=== PATIENT | female | born 1985 | race Caucasian/White ===

== ENCOUNTER → 2020-05-11 08:41 | Outpatient (CLI) | payer OTHER, SELFPAY ==
--- NOTE | ~2020-05-11 | US_ITS ---
EXAMINATION: US pelvic complete DATE: 05/11/2020 10:31 INDICATION: Menorrhagia Comparison:No prior studies for comparison. TECHNIQUE: Multiple transabdominal and endovaginal sonographic images of the pelvis performed. FINDINGS: The uterus measures 12.5 x 4.6 x 7.2 cm. There is a hyperechoic mass posteriorly in the afognak sindy measuring 2.2 x 1.9 x 1.9 cm, most likely calcified fibroid. The endometrial complex measures 10 mm. The right ovary measures 2.2 x 2.3 x 2.1 cm and the left ovary measures 2.5 x 2.2 x 2.2 cm. There ar e small follicles in each ovary. There is no free fluid in the pelvis. There are no abnormal masses seen on either side. IMPRESSION: 1. Hyperechoic 2.2 cm uterine mass posteriorly, likely calcified fibroid. Uterus mildly enlarged. Reviewed, dictated and finalized at location B. IMPRESSION: 1. Hyperechoic 2.2 cm uterine mass posteriorly, likely calcified fibroid. Uteru s mildly enlarged.
--- NOTE | ~2020-05-11 | MMUS_ITS ---
EXAMINATION: MM diagnostic randa BI w boris, US breast BI complete HISTORY: 11:00 right breast lump TECHNIQUE: Bilateral ML, MLO and craniocaudal full field and right spot 3-D tomosynthesis images were performed and synthetic 2-D images were generated. CAD analysis was submitted and interpreted. High resolution bilateral complete breast ultrasound was performed. COMPARISON: None BREAST PARENCHYMAL COMPOSITION: The breasts are heterogeneously dense, which may obscure small masses . FINDINGS: MAMMOGRAPHIC FINDINGS: Approximately 2.5 cm lobular circumscribed opacity is noted at the area of complaint in the upper out er quadrant of the right breast. Sonographic correlation is recommended. There is heterogeneously dense stroma of the breasts which may obscure small masses. Bilateral breast ultrasound examination therefore was performed. ULTRASOUND: Right breast: 11:00 2 cm from nipple at area of clinical complaint of breast lump: Lobular circumscribed up to 1.7 x 2.6 x 3.3 cm sonolucency with through transmission and posterior enhancement, compatible with cyst. Subareolar area: Approximately 4.5 x 7.8 mm hypoechoic mass with some posterior shadowing is noted. U ltrasound-guided biopsy is recommended. 10:00 4 cm from nipple: 4.8 x 10.3 mm sonolucency with through transmission posterior enhancement com patible with cyst Left breast: 12:00 1 cm from nipple: Circumscribed hypoechoic 4.6 x 5.0 mm sonolucency, without suspicious shadowi ng 4:00 6 cm from nipple: 2.6 mm cyst IMPRESSION: Right breast subareolar 4.5 x 7.8 mm hypoechoic mass with some posterior shadowing; ultrasound-guided biopsy is recommended Benign up to 3.2 cm lobular cyst of right breast at 11:00 2 cm from nipple, corresponding to palpable abnormality BI-RADS Category 4: Suspicious abnormality; biopsy should be considered (right breast subareolar 7.8 mm mass) Dr. Reeder telephoned the report and ultrasound guided biopsy recommendation on 05/11/2020 at 1320 hours to Izzy Reviewed, dictated and finalized at location A. IMPRESSION: Right breast subareolar 4.5 x 7.8 mm hypoechoic mass with some posterior shadow ing; ultrasound-guided biopsy is recommended Benign up to 3.2 cm lobular cyst of right breast at 11:00 2 cm from nipple, cor responding to palpable abnormality BI-RADS Category 4: Suspicious abnormality; biopsy should be considered (right breast subareolar 7.8 mm mass) Dr. Reeder telephoned the report and ultrasound guided biopsy recommendation on at 1320 hours to Izzy
== END ==
PROVIDERS: Visit Provider Nurse Practitioner
DX: N63.10 Unspecified lump in the right breast, unspecified quadrant (principal); N92.0 Excessive and frequent menstruation with regular cycle; R92.8 Other abnormal and inconclusive findings on diagnostic imaging of breast; N85.8 Other specified noninflammatory disorders of uterus
CPT/HCPCS: 76641; 76856; 77062; 77066; G0279

== ENCOUNTER 2020-05-24 10:05 | Outpatient (CLI) | payer OTHER, SELFPAY ==
--- NOTE | ~2020-05-24 | MMUS_ITS ---
EXAMINATION: US breast biopsy RT w image, MM post biopsy invasive RT DATE: 05/24/2020 11:10 (accession [id number]), 05/24/2020 11:21 (accession [id number]) INDICATION: Indeterminate a subareolar right breast mass. Ultrasound-guided core biopsy is requested to evaluate for malignancy. TECHNIQUE AND FINDINGS: The risks and potential benefits of the procedure were discussed with the patient including bleeding and infection. A time out was performed. The skin of the right breast was prepared and draped in usua l sterile fashion. 1% lidocaine was used for superficial anesthesia. 1% lidocaine with epinephrine wa s used for deep anesthesia. A vacuum-assisted biopsy gun needle was advanced through to the outer edge of the region of interest from a lateral approach utilizing sonographic guidance. A total of three tissue core samples were obt ained through the lesion. A tissue marker clip was then placed at the biopsy site. Hemostasis was ach ieved. A sterile bandage was applied. The patient tolerated procedure well and there was no evidence of immediate complication. A two view right breast mammogram was obtained to document tissue marker clip placement. IMPRESSION: 1. Successful ultrasound-guided vacuum-assisted biopsy of right breast mass with tissue marker placem ent. Reviewed, dictated and finalized at location A. IMPRESSION: 1. Successful ultrasound-guided vacuum-assisted biopsy of right breast mass wit h tissue marker placement.
== END 2020-05-24 10:06 | disposition home or self-care (01) ==
PROVIDERS: PCP Family Medicine; Visit Provider Surgery
DX: R92.8 Other abnormal and inconclusive findings on diagnostic imaging of breast (principal)
CPT/HCPCS: 19083; 88305; A4648

== ENCOUNTER 2020-07-11 17:12 | Emergency (ER) | payer OTHER, SELFPAY ==
[2020-07-11 17:26] VITALS: BP 174/95; PULSE 101; RESP 17; TEMP 37; O2SAT 100
[2020-07-11 17:45] LABS: Basophils Absolute Auto 0.1 K/mm3 (0.0-0.1); Basophils Percent Auto 0.6 % (0.2-1.2); Eosinophils Absolute Auto 0.3 K/mm3 (0-0.3); Eosinophils Percent Auto 2.4 % (0-4.4); Hematocrit 40.3 % (37.0-47.0); Hemoglobin 13.4 g/dL (12.0-15.0); Immature Granulocyte Absolute 0.04 K/mm3 (0.00-0.031); Immature Granulocyte Percent A 0.4 % (0-0.5); Lymphocytes Absolute Auto 2.48 K/mm3 (0.9-3.2); Lymphocytes Percent Auto 24.1 % (18.3-44.2); Mean Corpuscular HGB Conc 33.3 g/dl (32-36); Mean Corpuscular Hemoglobin 29.2 pg (26-34); Mean Corpuscular Volume 87.8 fl (80-100); Monocytes Absolute Auto 0.7 K/mm3 (0.1-0.6); Monocytes Percent Auto 6.4 % (2.6-8.5); Neutrophils Absolute Auto 6.8 K/mm3 (1.3-6.7); Neutrophils Percent Auto 66.1 % (45.5-73.1); Platelet Count Result 242 k/mm3 (150-375); Red Blood Count 4.59 M/mm3 (4.2-5.4); Red Cell Distribution Width 14.5 % (11.5-14.5); White Blood Count 10.3 K/mm3 (4.5-10.0)
[2020-07-11 17:49] LABS: Add Urine Microscopic? YES; Appearance Urine Cloudy (Clear); Bacteria Urine Trace /hpf; Bilirubin Urine Negative (Negative); Blood Urine 3+ (Negative); Color Urine Yellow (Yellow); Glucose Urine UA Negative (Negative); Ketones Urine Negative (Negative); Leukocyte Esterase Ur 2+ LEU/UL (Negative); Mucus Urine Few /lpf; Nitrate Urine Negative (Negative); Protein Urine 1+ mg/dL (Negative); RBC Urine >75 /hpf (0-2); Squamous Epithelial Cell Urine Many /hpf (Few); Urobilinogen Urine Negative mg/dL (<2.0); WBC Urine 21-30 /hpf
[2020-07-11 18:02] LABS: Alanine Aminotransferase 18 U/L (4-35); Albumin Level 3.9 g/dL (3.5-5.1); Alkaline Phosphatase 76 U/L (38-126); Anion Gap 10 mmol/L (8-16); Aspartate Amino Transferase 19 U/L (14-36); Bilirubin,Total 0.4 mg/dL (0.2-1.3); Blood Urea Nitrogen 11 mg/dL (7-17); Calcium 9.2 mg/dL (8.4-10.2); Carbon Dioxide 24 mmol/L (22-30); Chloride 104 mmol/L (98-107); Estimated CRCL calculation 123 ml/min; Estimated Glomerular Filt Rate > 60; Glucose 102 mg/dL (65-105); Lipase 99 U/L (23-300); Potassium 3.5 mmol/L (3.4-5.0); Sodium 138 mmol/L (137-145)
--- NOTE | 2020-07-11 18:59 | PC.NURSE ---
Pt asked this RN would it be bad if i just left ? I informed pt that i cant tell her that. Pt states that I have sat here long enough the pain is gone. then left.
== END 2020-07-11 18:59 | disposition left against medical advice (07) ==
PROVIDERS: Emergency Provider Emergency Medicine; PCP Family Medicine
DX: R10.31 Right lower quadrant pain (principal)
CPT/HCPCS: 36415; 80053; 81001; 83690; 85025; 87086; 87088; 99199

== ENCOUNTER → 2020-10-28 08:43 | Outpatient (CLI) | payer OTHER, SELFPAY ==
--- NOTE | ~2020-10-28 | MM_ITS ---
EXAMINATION: MM diagnostic randa RT w boris HISTORY: Follow-up benign right breast biopsy. TECHNIQUE: Additional 3-D tomosynthesis images of the right breast were performed and synthetic 2-D i mages were generated. CAD analysis was submitted and interpreted. COMPARISON: Comparison to multiple prior studies sequentially, with oldest reviewed study dated 09/2014. BREAST PARENCHYMAL COMPOSITION: The breasts are heterogenously dense, which may obscure small masses. FINDINGS: There is decreased size of mass in the upper outer quadrant of the right breast, previously characterized as a cyst. No new masses, calcifications or architectural distortion are identified in the right breast to suggest malignancy. IMPRESSION: 1. No evidence for malignancy in the right breast. 2. Routine yearly screening mammogram and regular clinical breast examination are recommended. BI-RADS Category 2: Benign finding(s). Reviewed, dictated and finalized at location A. TICS SOFTWARE ENGINEER IMPRESSION: 1. No evidence for malignancy in the right breast. 2. Routine yearly screening mammogram and regular clinical breast examination a re recommended. BI-RADS Category 2: Benign finding(s).
== END ==
PROVIDERS: Visit Provider Surgery
DX: R92.8 Other abnormal and inconclusive findings on diagnostic imaging of breast (principal)
CPT/HCPCS: 77061; 77065; G0279

== ENCOUNTER → 2021-04-20 10:29 | Outpatient (CLI) | payer OTHER, SELFPAY ==
--- NOTE | ~2021-04-20 | MM_ITS ---
EXAMINATION: MM screening randa BI w boris HISTORY: Screening mammogram, family history of breast cancer in her mother. TECHNIQUE: Craniocaudal and mediolateral oblique 3-D tomosynthesis images were obtained and synthetic 2-D images were generated. CAD analysis was submitted and interpreted. COMPARISON: 10/28/2020, 05/11/2020 BREAST PARENCHYMAL COMPOSITION: The breasts are heterogeneously dense, which may obscure small masses . FINDINGS: There is no evidence of suspicious mass, calcification, or architectural distortion to sugg est malignancy in either breast. There has been no suspicious interval change. IMPRESSION: 1. No mammographic evidence of malignancy. 2. Recommend routine screening mammography beginning at age 40. BI-RADS Category 1: Negative Reviewed, dictated and finalized at location A.
== END ==
PROVIDERS: PCP Family Medicine; Visit Provider Surgery
DX: Z12.31 Encounter for screening mammogram for malignant neoplasm of breast (principal)
CPT/HCPCS: 77063; 77067

== ENCOUNTER 2021-07-01 08:06 | Outpatient (CLI) | payer OTHER, SELFPAY ==
--- NOTE | ~2021-07-01 | XR_ITS ---
EXAMINATION: XR abdomen/kub 1V INDICATION: Nephrolithiasis TECHNIQUE: Supine views of the abdomen were obtained on 2 radiographs. COMPARISON: 02/23/2017 FINDINGS: There is bilateral nephrolithiasis. There appear to be fewer stones in the right mid kidney compared to the prior examination. Cholecystectomy clips are noted. The bowel gas pattern is normal. There are bilateral tubal occlusion devices. IMPRESSION: 1. Bilateral nephrolithiasis with possible interval decrease in stone burden the right mid kidney. Reviewed, dictated and finalized at location B. IMPRESSION: 1. Bilateral nephrolithiasis with possible interval decrease in stone burden th e right mid kidney.
--- NOTE | ~2021-07-01 | CT_ITS ---
EXAMINATION: CT abdomen pelvis wo con DATE: 07/01/2021 08:30 INDICATION: Kidney stones. TECHNIQUE: Computed tomography (CT) of the abdomen and pelvis was performed without intravenous contr ast. The dose-length product (DLP) was 967.71 mGy-cm. Automated exposure control and iterative recons truction technique were employed. COMPARISON: 01/23/2017 FINDINGS: Minimal dependent atelectasis is present in the lung bases. The heart size is normal. The g allbladder is surgically absent. Punctate calcifications in an otherwise normal spleen likely represe nt healed granulomatous disease. The liver, pancreas, and right adrenal gland are normal. There is a 16 mm adenoma of the left adrenal gland. There are multiple nonobstructing stones of the left kidney which measure up to 7 mm. There are multiple nonobstructing stones of the right kidney as well which measure up to 7 mm. No pathologically enlarged abdominal or pelvic lymph nodes are identified. There is no free intraperitoneal gas or evidence of bowel obstruction. A 1.9 cm hypoattenuating lesion of t he uterus is stable since the 1519 ultrasound comparison. Bilateral tubal occlusion devices are noted. There is moderate lumbar spondylosis. IMPRESSION: 1. Nonobstructing bilateral nephrolithiasis. Reviewed, dictated and finalized at location B.
== END 2021-07-01 08:07 | disposition home or self-care (01) ==
PROVIDERS: PCP Family Medicine; Visit Provider Urology
DX: N20.0 Calculus of kidney (principal)
CPT/HCPCS: 74018; 74176

== ENCOUNTER → 2022-05-29 11:38 | Outpatient (CLI) | payer OTHER, SELFPAY ==
--- NOTE | ~2022-05-29 | XR_ITS ---
EXAMINATION: XR chest 2V 05/29/2022 11:51 INDICATION: Shortness of breath PROCEDURE: 2 view chest COMPARISON: No prior studies for comparison. FINDINGS: The lungs are clear. The cardiomediastinal silhouette is within normal limits. There are no pleural effusions. There is no pneumothorax suspected. IMPRESSION: 1: NO ACUTE CARDIOPULMONARY DISEASE. Reviewed, dictated and finalized at location A.
== END ==
PROVIDERS: PCP Physician Assistant; Visit Provider Physician Assistant
DX: R06.02 Shortness of breath (principal)
CPT/HCPCS: 71046

== ENCOUNTER → 2022-07-06 15:00 | Outpatient (CLI) | payer OTHER, SELFPAY ==
--- NOTE | ~2022-07-06 | US_ITS ---
EXAMINATION: US pelvic complete DATE: 07/06/2022 15:16 INDICATION: Menorrhagia. TECHNIQUE: Multiple transabdominal sonographic images of the pelvis were obtained. COMPARISON: CT abdomen and pelvis 07/01/2021 FINDINGS: The uterus measures 12.0 x 5.3 x 8.0 cm. There is no free fluid in the pelvis. The endometrial comple x measures 6 mm in thickness. There is a 3.3 cm hyperechoic intramural mass, consistent with a lipole iomyoma. The right ovary is not visualized. The left ovary measures 1.6 x 2.5 x 1.8 cm. IMPRESSION: 1. 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 Reviewed, dictated and finalized at location A. AUDITOR IMPRESSION: 1. 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
== END ==
PROVIDERS: PCP Obstetrics & Gynecology Gynecology; Visit Provider Obstetrics & Gynecology Gynecology
DX: N92.0 Excessive and frequent menstruation with regular cycle (principal)
CPT/HCPCS: 76856

== ENCOUNTER 2022-07-12 12:17 | Outpatient (CLI) | payer OTHER, SELFPAY ==
--- NOTE | ~2022-07-12 | MM_ITS ---
EXAMINATION: MM screening [facility] BI w boris HISTORY: Screening TECHNIQUE: Craniocaudal and mediolateral oblique 3-D tomosynthesis images were obtained and synthetic 2-D images were generated. CAD analysis was submitted and interpreted. COMPARISON: Comparison to multiple prior studies sequentially, with oldest reviewed study dated 05/11. BREAST PARENCHYMAL COMPOSITION: The breasts are extremely dense, which lowers the sensitivity of mamm ography FINDINGS: There are developing bilateral low-density masses involving the upper outer quadrant of the right breast anteriorly in the lower inner quadrant of the left breast anteriorly. IMPRESSION: 1. Developing bilateral breast masses. 2. Additional mammographic views and possible breast ultrasound are recommended. BI-RADS Category 0: Incomplete: Needs additional imaging evaluation. Reviewed, dictated and finalized at location A. CAL ASSISTANT PRN IMPRESSION: 1. Developing bilateral breast masses. 2. Additional mammographic views and possible breast ultrasound are recommended . BI-RADS Category 0: Incomplete: Needs additional imaging evaluation.
== END 2022-07-12 12:18 | disposition home or self-care (01) ==
PROVIDERS: PCP Physician Assistant; Visit Provider Surgery
DX: Z12.31 Encounter for screening mammogram for malignant neoplasm of breast (principal); R92.8 Other abnormal and inconclusive findings on diagnostic imaging of breast
CPT/HCPCS: 77063; 77067

== ENCOUNTER 2022-08-01 13:14 | Outpatient (CLI) | payer OTHER, SELFPAY ==
--- NOTE | ~2022-08-01 | MMUS_ITS ---
EXAMINATION: MM diagnostic randa BI w boris, US breast BI limited HISTORY: Possible bilateral breast masses on screening mammogram TECHNIQUE: Additional 3-D tomosynthesis images of the breasts were performed and synthetic 2-D images were generated. CAD analysis was submitted and interpreted. High resolution limited bilateral breast ultrasound was performed. COMPARISON: 07/12/2022, 04/20/2021, 10/28/2020, 05/09/2020 FINDINGS: MAMMOGRAPHIC FINDINGS: Left breast: There is a 1.5 cm oval, obscured, low density mass in the middle third of the lower inne r breast at the 8:00 location 5 cm from the nipple. Right breast: There is a 2.2 cm oval, obscured, low density mass in the middle third of the outer armaan ast at the 10:00 location 5 cm from the nipple. ULTRASOUND: Left breast: There is a 10 mm x 6 mm oval, circumscribed, parallel, hypoechoic mass with no posterior features or internal vascularity at the 6:00 location 1 cm from the nipple. There is an adjacent 12 mm cyst. Right breast: There is a 13 mm x 9 mm oval, circumscribed, parallel mass with an eccentric solid comp onent at the 10:00 location 2 cm from the nipple with no posterior features or internal vascularity. There is a 2.8 cm cyst with debris o'clock location 3 cm from the nipple with decrease in size since the comparison examination. There is a 9 mm x 5 mm oval, circumscribed, parallel, hypoechoic mass wit h no posterior features or internal vascularity at the 11:00 location 2 cm from the nipple. IMPRESSION: 1. Indeterminate sonographically detected masses at the 6:00 location 1 cm from the nipple in the lef t breast and the 10:00 location 2 cm from the nipple in the right breast for which ultrasound-guided biopsy is recommended. 2. Probably benign mass at the 11:00 location 2 cm from the nipple in the right breast for which foll ow-up diagnostic mammogram and ultrasound are recommended. BI-RADS category 4, suspicious findings. Reviewed, dictated and finalized at location A. TIC ATTACHER COVERSTITCH IMPRESSION: 1. Indeterminate sonographically detected masses at the 6:00 location 1 cm from the nipple in the left breast and the 10:00 location 2 cm from the nipple in t he right breast for which ultrasound-guided biopsy is recommended. 2. Probably benign mass at the 11:00 location 2 cm from the nipple in the right breast for which follow-up diagnostic mammogram and ultrasound are recommended . BI-RADS category 4, suspicious findings.
== END 2022-08-01 13:15 | disposition home or self-care (01) ==
LOC: ANHIMG 13:18
PROVIDERS: PCP Physician Assistant; Visit Provider Surgery
DX: R92.8 Other abnormal and inconclusive findings on diagnostic imaging of breast (principal)
CPT/HCPCS: 76642; 77062; 77066; G0279

== ENCOUNTER 2022-08-15 09:06 | Outpatient (CLI) | payer OTHER, SELFPAY ==
--- NOTE | ~2022-08-15 | MMUS_ITS ---
MM post biopsy diagnostic BI, US breast bx add lesion LT, US breast biopsy RT w image EXAMINATION: US GUIDED NEEDLE BIOPSY WITH VACUUM ASSISTANCE DATE: 08/15/2022 11:16 POSTAL SERVICE WINDOW CLERK INDICATION: Bilateral breast masses seen on recent examination. Ultrasound-guided core biopsy is req uested to evaluate for malignancy. TECHNIQUE AND FINDINGS: The risks and potential benefits of the procedure were discussed with the patient, and written inform ed consent was obtained. After sterile preparation of the breast, 1% lidocaine was utilized for loca l anesthesia. 1% lidocaine with epinephrine was used for deep anesthesia. Right breast 10:00 position 2 cm from the nipple: A 10G vacuum-assisted biopsy gun needle was advance d through to the outer edge of the region of interest from a superior approach utilizing sonographic guidance. A total of 4 tissue core samples were obtained through the lesion. An Inrad tissue marker clip was then placed at the biopsy site. Hemostasis was achieved. Left breast 6:00, 1 cm from the nipple: A 10G vacuum-assisted biopsy gun needle was advanced through to the outer edge of the region of interest from a lateral approach utilizing sonographic guidance. A total of 4 tissue core samples were obtained through the lesion. An Inrad tissue marker clip was t hen placed at the biopsy site. Hemostasis was achieved. The patient tolerated procedure well and there was no evidence of immediate complication. The patien t was given verbal instructions partly is from the department. Bilateral mammogram performed to docu ment tissue marker clip placement. The tissue samples were submitted to surgical pathology for histol ogic analysis. IMPRESSION: 1. Successful ultrasound-guided vacuum-assisted biopsy of bilateral breast mass with tissue marker p lacement. Please refer to pathology report for histologic analysis. Reviewed, dictated and finalized at location A. AL SERVICE WINDOW CLERK IMPRESSION: 1. Successful ultrasound-guided vacuum-assisted biopsy of bilateral breast mas s with tissue marker placement. Please refer to pathology report for histologic analysis. IMPRESSION: 1. Successful ultrasound-guided vacuum-assisted biopsy of bilateral breast mas s with tissue marker placement. Please refer to pathology report for histologic analysis.
== END 2022-08-15 09:07 | disposition home or self-care (01) ==
PROVIDERS: PCP Family Medicine; Visit Provider Surgery
DX: R92.8 Other abnormal and inconclusive findings on diagnostic imaging of breast (principal); N60.12 Diffuse cystic mastopathy of left breast; N60.11 Diffuse cystic mastopathy of right breast
CPT/HCPCS: 19083; 19084; 77066; 88305; A4648

== ENCOUNTER 2023-01-29 11:41 | Outpatient (CLI) | payer OTHER, SELFPAY ==
--- NOTE | ~2023-01-29 | MMUS_ITS ---
EXAMINATION: MM diagnostic randa RT w boris, US breast RT limited HISTORY: Follow-up right breast masses TECHNIQUE: Additional 3-D tomosynthesis images of the right breast were performed and synthetic 2-D i mages were generated. CAD analysis was submitted and interpreted. High resolution Limited right breas t ultrasound was performed. COMPARISON: Comparison to multiple prior studies sequentially, with oldest reviewed study dated 05/24. BREAST PARENCHYMAL COMPOSITION: The breasts are heterogeneously dense, which may obscure small masses . FINDINGS: MAMMOGRAPHIC FINDINGS: There is an obscured 2 cm mass in the upper outer quadrant of the right breast. There are adjacent ti ssue markers from previous benign biopsies. There are no suspicious calcifications or architectural d istortion. ULTRASOUND: Limited right breast ultrasound: At 11:00, 2 cm from the nipple there is a 9 mm cyst. At 10:00, 2 cm from the nipple, there is a thick-walled cyst measuring 1.8 cm. This masses slightly larger than on p rior examination with thickening of the wall along the anterior lateral margin. At 9:00, 3 cm from th e nipple, there is a thick-walled 1.8 cm cystic mass. Both masses at 10 and 9:00 position, parallel o rientation, no significant posterior features and no internal vascularity. This mass has a different morphology than on prior study with fewer internal echoes and more peripheral wall thickening. IMPRESSION: 1. Complex cystic masses of the right breast at 10:00, 2 cm from the nipple measuring 1.8 cm and at 9 :00, 3 cm from the nipple measuring 1.8 cm. Ultrasound guided fine needle aspiration of these masses recommended with possible ultrasound-guided vacuum biopsy. BI-RADS CATEGORY 4-SUSPICIOUS ABNORMALITY RECOMMENDATION: Ultrasound-guided right breast biopsies recommended. Reviewed, dictated and finalized at location A. IMPRESSION: 1. Complex cystic masses of the right breast at 10:00, 2 cm from the nipple lucius suring 1.8 cm and at 9:00, 3 cm from the nipple measuring 1.8 cm. Ultrasound gu ided fine needle aspiration of these masses recommended with possible ultrasoun d-guided vacuum biopsy. BI-RADS CATEGORY 4-SUSPICIOUS ABNORMALITY RECOMMENDATION: Ultrasound-guided right breast biopsies recommended.
== END 2023-01-29 11:42 | disposition home or self-care (01) ==
LOC: ANHIMG 11:42
PROVIDERS: PCP Family Medicine; Visit Provider Surgery
DX: R92.8 Other abnormal and inconclusive findings on diagnostic imaging of breast (principal)
CPT/HCPCS: 76642; 77061; 77065; G0279

== ENCOUNTER 2023-03-20 08:47 | Outpatient (CLI) | payer OTHER, SELFPAY ==
--- NOTE | ~2023-03-20 | MMUS_ITS ---
EXAMINATION: US breast biopsy RT w image, MM post biopsy diagnostic RT DATE: 03/20/2023 10:00 (accession [id number]), 03/20/2023 10:07 (accession [id number]) INDICATION: Indeterminate mass in the upper outer quadrant of the right breast. Ultrasound-guided cor e biopsy is requested to evaluate for malignancy. TECHNIQUE AND FINDINGS: The risks and potential benefits of the procedure were discussed with the patient including bleeding and infection. A time out was performed. The skin of the right breast was prepared and draped in usua l sterile fashion. 1% lidocaine was used for superficial anesthesia. 1% lidocaine with epinephrine wa s used for deep anesthesia. A vacuum-assisted biopsy needle was advanced through to the outer edge of the region of interest from an inferolateral approach utilizing sonographic guidance. A total of three tissue core samples were obtained through the lesion. A tissue marker clip was then placed at the biopsy site. Hemostasis was achieved. A sterile bandage was applied. The patient tolerated procedure well and there was no evidence of immediate complication. The patient was given verbal instructions to return to the Emergency Department in the event of severe breast pa in or rapid breast enlargement. A two view right breast mammogram was obtained to document tissue mar ker clip placement. IMPRESSION: 1. Successful ultrasound-guided vacuum-assisted biopsy of right breast mass with tissue marker placem ent. Reviewed, dictated and finalized at location D. IMPRESSION: 1. Successful ultrasound-guided vacuum-assisted biopsy of right breast mass wit h tissue marker placement.
== END 2023-03-20 08:48 | disposition home or self-care (01) ==
LOC: CHSIMG 08:49
PROVIDERS: PCP Family Medicine; Visit Provider Surgery
DX: R92.8 Other abnormal and inconclusive findings on diagnostic imaging of breast (principal); N63.10 Unspecified lump in the right breast, unspecified quadrant
CPT/HCPCS: 19083; 77065; 88305

== ENCOUNTER 2023-09-12 08:38 | Outpatient (CLI) | payer OTHER, SELFPAY ==
--- NOTE | 2023-09-13 17:23 | WPDHOMESLEEP ---
Sleep Study - Home Unattended Date of Study: 09/12/23 Ordering Provider: Garrett Swartz PA-C Interpreting Provider: Aracelis Grier MD Home Sleep Study Type: Watch PAT Height: 1.73 m Weight: 139.253 kg Body Mass Index: 46.6 Neck Circumference (inches): 17.5 [place]: 8 Reason for Sleep Study Hypersomnolence Sleep History Jazmyne Donaldson is a 38-year-old woman with hypertension and excessive daytime sleepiness. She has episodes of waking during the night. She never awakens from sleep short of breath. She rarely wakes at night with heartburn, belching or coughing.??She occasionally snores, and occasionally snores loudly enough that others complain. She frequently has trouble sleeping when she has a cold. She never wakes up gasping for breath during the night. She never has breathing problems at night. She never sweats excessively at night. She rarely notices her heart pounding or beating irregularly during the night. She occasionally falls asleep during the day. She never falls asleep involuntarily, never falls asleep while driving. She never experiences loss of muscle tone with strong emotion. She never feels paralyzed on waking or falling asleep. She never experiences vivid dreams upon waking or falling asleep. She never feels afraid of going to sleep. She never has nightmares. She never recalls her dreams. She occasionally has thoughts racing through her mind. She rarely feels sad or depressed. She rarely feels anxiety. She rarely notices parts of her body jerk. She never kicks during the night. She never feels crawling or aching feelings in her legs. She never feels leg pain at night. She never has morning jaw pain, and never grinds her teeth at night. She rarely feels bothered by pain during the day, is rarely awakened by pain during the night. She rarely wakes up feeling stiff in the morning, rarely wakes feeling sore or achy in the morning. She rarely awakens with pain in her neck, spine, or joints. 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 and 11:00 p.m., falling asleep within a few minutes, usually within 5 minute, waking about 5 times during the night for a few minutes. While awake, she rolls over and returns to sleep easily. Her normal wake time is 6:00 a.m. during the week. On weekends, bedtime is 11:00 p.m. and her wake time is a little later, between 8:00 a.m. and 10:00 p.m.. She generally does not take naps in the afternoon or evening. If she takes a short nap lasting 10 or 15 minutes, she may feel refreshed. Most of the time she feels adequate on awakening but become sleepy later in the day. She feels better in the evening compared to other times of day. Habits:??Tobacco: Never smoker Caffeine: 1 or 2 servings of caffeine per week Alcohol: none Recreational substances: none [facility] Past Medical History Medical History Abnormal finding on breast imaging History of kidney stones Hypertension Surgical History Surgical History History of breast biopsy right breast Pathology: Benign fibrocystic change with focal apocrine metaplasia. Imaging findings are concordant. History of cholecystectomy History of removal of cyst wrist History of tonsillectomy Family History Family History Mother Family history of malignant neoplasm of breast in first degree relative Breast cancer Grandparent Family history of coronary artery disease Father Lung cancer Testicular cancer Other Diabetes mellitus Social History Social History Smoking status: Never smoker Alcohol intake: never Substance use: never Substance use type: does not use Do You Feel Safe in your Home?
[2023-09-13 17:27] VITALS: BMI 46.6
== END 2023-09-13 08:57 | disposition home or self-care (01) ==
LOC: ANHCSM 08:39
PROVIDERS: PCP Family Medicine; Visit Provider Physician Assistant
DX: G47.33 Obstructive sleep apnea (adult) (pediatric) (principal)
CPT/HCPCS: 95800

== ENCOUNTER 2023-11-17 10:52 | Outpatient (CLI) | payer OTHER, SELFPAY ==
--- NOTE | ~2023-11-17 | US_ITS ---
EXAMINATION: US pelvic complete DATE: 11/17/2023 11:08 INDICATION: Abnormal uterine bleeding Comparison:Ultrasound dated 07/06/2022 TECHNIQUE: Multiple transabdominal sonographic images of the pelvis performed. FINDINGS: The uterus measures 11.4 x 5.5 x 7.7 cm. The endometrial complex measures 8 mm. There is a hyperechoic uterine mass along the posterior aspect of the uterus measuring 3.5 x 3.3 x 3. 5 cm, consistent with lipoleiomyoma. There is a small uterine fibroid located anteriorly measuring 1. 8 cm, slightly hyperechoic. The right ovary measures and the left ovary measures . There are small follicles in each ovary. Norm al doppler signal in both ovaries. There is no free fluid in the pelvis. There are no abnormal masses seen on either side. IMPRESSION: 1. Uterine masses, largest being echogenic measuring up to 3.5 cm, consistent with lipoleiomyoma. Sec ond uterine fibroid located anteriorly measures 1.8 cm. Reviewed, dictated and finalized at location A. IMPRESSION: 1. Uterine masses, largest being echogenic measuring up to 3.5 cm, consistent w ith lipoleiomyoma. Second uterine fibroid located anteriorly measures 1.8 cm.
== END 2023-11-17 10:53 ==
LOC: MICIMG 10:52
PROVIDERS: PCP Obstetrics & Gynecology Gynecology; Visit Provider Obstetrics & Gynecology Gynecology
DX: N93.8 Other specified abnormal uterine and vaginal bleeding (principal)
CPT/HCPCS: 76856

== ENCOUNTER 2024-02-20 09:55 | Outpatient (CLI) | payer OTHER, SELFPAY ==
--- NOTE | 2024-02-20 10:03 | ECG_ITS ---
Test Date: 2024-02-20 10:15:26 Measurements Intervals [place] Rate: 38 P: 12 WV: 173 QRS: 20 QRSD: 97 T: 1 QT: 343 QTc: 274 Interpretive Statements SINUS BRADYCARDIA LOW QRS VOLTAGE IN PRECORDIAL LEADS [QRS DEFLECTION < 1.0 mV IN CHEST LEADS] POOR R-WAVE PROGRESSION WARNING: DATA QUALITY MAY AFFECT INTERPRETATION No previous ECG available for comparison Electronically Signed On 02-20-2024 11:55:45 CDT by Dian Church M.D.
== END 2024-02-20 09:56 | disposition home or self-care (01) ==
LOC: ANHSURGERY 09:57
PROVIDERS: PCP Family Medicine; Visit Provider Obstetrics & Gynecology Gynecology
DX: N92.0 Excessive and frequent menstruation with regular cycle (principal); I10 Essential (primary) hypertension
CPT/HCPCS: 36415; 86850; 86900; 86901; 93005

== ENCOUNTER 2024-02-25 10:59 | Inpatient (IN) | payer OTHER, SELFPAY ==
[2024-02-14 13:33] VITALS: BMI 47.9
--- NOTE | 2024-02-14 14:00 | PC.NURSE ---
Report to the Outpatient Waiting Room, entrance under the green pavilion located off [facility], at 0600 on 02-25-24. Planned Procedure Time: 0730. Time changes happen often and if your time is changed the preop area will call you the afternoon before. - You and your visitor will be asked to self-screen and do not enter if you have any COVID symptoms. - A mask is optional within the hospital at this time. Patients may have clear liquids (water, carbonated beverages, clear teas, apple juice) until 3 hours prior to surgery with a maximum of 20 ounces. 0430 - No food from midnight until time of surgery - Infants may have breast milk until 4 hours before surgery, formula 6 hours prior to surgery. - Children will be allowed to drink immediately following surgery. If applicable, please bring a bottle or sippy cup to assist with drinking. Juice, water, soda, and popsicles are readily available. For infants on formula, please bring formula the day of surgery. Pacifiers are allowed. Take the following medications with a SIP of water the morning of surgery: metoprolol Bring inhaler day of surgery to the hospital with you DO NOT STOP ANY OF YOUR OTHER PRESCRIPTION MEDICATIONS PRIOR TO SURGERY ?EXCEPT THE FOLLOWING Medications to discontinue per physician: vitamins and supplements Date to take last dose: 02-22-24 Please no make-up, nail gambian, hairspray, perfume, deodorant, or body powder the day of surgery. No jewelry (including any body piercings) or valuables the day of surgery, leave them at home. Please take a shower or bath the night before, or the morning of, surgery with an antibacterial soap. Wear comfortable, loose fitting clothing. Children are encouraged to wear pajamas. - Jewelry must be removed prior to entering the operating room. Rings and piercings that are not removed may be cut off. - The hospital will not accept responsibility for valuables. - Please leave all valuables, including medications, at home the day of surgery. If you are going home after surgery, a licensed tower truck driver must drive you home. - NO public transportation without another adult if you receive anesthesia. - We recommend that an adult stay with you for 24 hours following discharge. - We also recommend that you do not drive, make important decision, drink alcoholic beverages, or take any drugs that were not prescribed by your health care provider for at least 24 hours after your discharge time. For Pediatric surgeries, we recommend two adults accompany the child home. Follow any additional instructions given to you from your surgeon. If you or anyone in your household have experienced Covid symptoms in the past week, please notify your surgeon or the nurse liaison at the phone number below for possible testing. Telephone instructions given to Jazmyne Donaldson and asked if any additional questions and then verbalized understanding. Patient advised to call surgeon office or pre surgery nurse liaison [phone] if any additional questions.
[2024-02-25] VITALS (20 sets, daily range): BP systolic 127–180; BP diastolic 79–119; PULSE 69–99; RESP 12–22; TEMP 36.2–36.9; O2SAT 91–100
[2024-02-25] MEDS: ACETAMINOPHEN 500 MG TABLET 1000 MG PO (06:38)
[2024-02-25] MEDS: LACTATED RINGERS 1,000 ML 30 ML IV CONT ×2 (06:45→09:39)
[2024-02-25] MEDS: KETOROLAC 15 MG/ML VIAL (*BKC) IV PUSH (06:48)
--- NOTE | 2024-02-25 06:50 | WPDANESEPPF ---
Anes - Initial Pre Proc Eval Procedure: Operation Date: 02/25/24 07:30 Proposed Procedures p Total Abdominal Hysterectomy with Bilateral Salpingectomy - Micki Silva MD Date/Time: 02/25/24 06:50 Surgeon: Micki Silva MD Pre Op Diagnosis: menorrhagia, fibroids Patient Data Age: 39 Gender: F Height: 1.73 m Weight: 142.88 kg Allergies Allergy/AdvReac Type Severity Reaction Status Date / Time lisinopril Allergy Severe Cough Verified 02/25/24 06:12 Sulfa (Sulfonamide Allergy Unknown unknown Verified 02/25/24 06:12 Antibiotics) sulfanilamide Allergy Unknown unknown Verified 02/25/24 06:12 amlodipine AdvReac Severe ankle Verified 02/25/24 06:12 swelling Home Medications Medication Instructions Recorded Confirmed Type albuterol sulfate 90 mcg/actuation 2 inh inhalation Q4H wheezing/ 05/29/22 02/20/24 Rx aerosol inhaler (ProAir HFA) shortness of breath #8.5 grams metformin 500 mg tablet,extended See Rx Instructions PO .COMPLEX 01/10/24 02/25/24 Rx release 24 hr #180 tabs omega 3-mes-tba-fish oil 1,200 mg 2 cap PO DAILY 02/14/24 02/25/24 History (144 mg-216 mg) capsule (Fish Oil) metoprolol succinate 50 mg 50 mg PO DAILY #90 tabs 02/21/24 02/25/24 Rx tablet,extended release 24 hr Patient hx anesthesia problems: none Family hx anesthesia problems: none Results Review: All pre-operative results and documents have been reviewed as part of the pre-operative evaluation. [facility] Past Medical History Medical History Abnormal finding on breast imaging Foot pain, left History of kidney stones Hypertension Surgical History Surgical History History of breast biopsy right breast Pathology: Benign fibrocystic change with focal apocrine metaplasia. Imaging findings are concordant. History of cholecystectomy History of removal of cyst wrist History of tonsillectomy Family History Family History Mother Family history of malignant neoplasm of breast in first degree relative Breast cancer Grandparent Family history of coronary artery disease Father Lung cancer Testicular cancer Other Breast cancer BRCA negative Other Diabetes mellitus Social History Social History Smoking status: Never smoker Second hand tobacco smoke exposure: No Alcohol intake: never Alcohol use details: very rarely maybe one time per year Substance use: never Substance use type: does not use Do You Feel Safe in your Home?: Yes Lack of Transportation: No Lack of Food: Never True Current Housing: I Have Housing Concerned About Future Housing: No Difficulty Paying Gas/Electric Bills: No Difficulty Paying for Meds: No Currently Unemployed: No Education: High School Diploma/GED Difficulty w/ Childcare or Family Care: No Living arrangements: with family Occupation/Education: unemployed Spiritual care concerns: No Anes - Eval Final PreProcedure Day of Procedure 02/25/24 06:50 Patient weight: morbidly obese Heart: regular rate and rhythm Lungs: clear to auscultation Airway: Mallampati scale class III Neurological: alert and oriented Last oral intake: >/= 8 hours ASA classification: III Emergent: no Anesthetic plan: proceed Anesthesia type and monitoring: general ETT and standard monitoring Results Review: All pre-operative results and documents have been reviewed as part of the pre-operative evaluation. Informed Consent: The patient's anesthetic plan and its attendant risks and benefits were discussed with the patient/family/POA. Questions were solicited and answers provided to the satisfaction of the patient/family/POA.
[2024-02-25 06:51] LABS: Glucose Point of Care 104 mg/dl (65-105)
--- NOTE | 2024-02-25 07:00 | SUR.PREOP ---
0650-Dr. Fam aware of pt B/P and Metoprolol dose.
--- NOTE | 2024-02-25 07:02 | WPDHPUPDATE1 ---
History and Physical Update Update Date/Time: 02/25/24 07:02 History and Physical has been reviewed, including an updated exam of the patient. There are NO changes in the patient's condition. Risks, benefits, and alternatives have been discussed and questions answered. Patient agrees to proceed with procedure.
--- NOTE | 2024-02-25 07:02 | PM.IMHP ---
H&P: HPI History of Present Illness Date/Time: 02/25/24 07:02 Chief Complaint: menorrhagia with fibroids Narrative: The patient is a 39-year-old 2 para 2 admitted for total abdominal hysterectomy with bilateral salpingectomy secondary to menorrhagia with fibroids. Patient failed medication as as an ablation and continues to have heavy cycles. She has elected to proceed with definitive therapy. Risks of infection, bleeding, injury to internal organs (bowel, bladder, ureters, ovaries ), DVT, and anesthesia are reviewed. Patient voices understanding and agrees to proceed. Review of Systems Review of Systems: not repeated day of surgery; patient states no changes in status PMFSH Past Medical History Medical History (Updated 02/25/24 @ 07:07 by Micki Silva MD) History of kidney stones Hypertension (normal spontaneous vaginal delivery) x2 Surgical History Surgical History (Updated 02/25/24 @ 07:06 by Micki Silva MD) History of bilateral tubal ligation Ess[place] 2012 History of breast biopsy X2-- 2019 and 2022 both benign History of cholecystectomy History of endometrial ablation History of hysteroscopy History of removal of cyst wrist History of tonsillectomy Family History Family History Mother Family history of malignant neoplasm of breast in first degree relative Breast cancer Grandparent Family history of coronary artery disease Father Lung cancer Testicular cancer Other Breast cancer BRCA negative Other Diabetes mellitus Social History Social History Smoking status: Never smoker Second hand tobacco smoke exposure: No Alcohol intake: never Alcohol use details: very rarely maybe one time per year Substance use: never Substance use type: does not use Do You Feel Safe in your Home?: Yes Lack of Transportation: No Lack of Food: Never True Current Housing: I Have Housing Concerned About Future Housing: No Difficulty Paying Gas/Electric Bills: No Difficulty Paying for Meds: No Currently Unemployed: No Education: High School Diploma/GED Difficulty w/ Childcare or Family Care: No Living arrangements: with family Occupation/Education: unemployed Spiritual care concerns: No Meds Home Medications and Allergies Home Medications Medication Instructions Recorded Confirmed Type albuterol sulfate 90 mcg/actuation 2 inh inhalation Q4H wheezing/ 05/29/22 02/20/24 Rx aerosol inhaler (ProAir HFA) shortness of breath #8.5 grams metformin 500 mg tablet,extended See Rx Instructions PO .COMPLEX 01/10/24 02/25/24 Rx release 24 hr #180 tabs omega 4-bpe-wjn-fish oil 1,200 mg 2 cap PO DAILY 02/14/24 02/25/24 History (144 mg-216 mg) capsule (Fish Oil) metoprolol succinate 50 mg 50 mg PO DAILY #90 tabs 02/21/24 02/25/24 Rx tablet,extended release 24 hr Allergies Allergy/AdvReac Type Severity Reaction Status Date / Time lisinopril Allergy Severe Cough Verified 02/25/24 06:12 Sulfa (Sulfonamide Allergy Unknown unknown Verified 02/25/24 06:12 Antibiotics) sulfanilamide Allergy Unknown unknown Verified 02/25/24 06:12 amlodipine AdvReac Severe ankle Verified 02/25/24 06:12 swelling Exam Const: General: obese ( BMI 47) Orientation/consciousness: patient oriented x3 Resp: Effort & Inspection: normal respiratory effort GI: GI Palp: Yes Soft to palpation, No Tenderness to palpation present (GI) and No Palpable mass present : External Female Exam: normal external appearance Speculum Exam - Vagina: normal appearance of the vagina and normal vaginal discharge Speculum Exam - Cervix: normal appearance of the cervix Bimanual exam- vagina & uterus: consistency normal and enlarged Bimanual Exam- Adnexa, other: normal adnexae and No adnexal tenderness Neuro: General: patient oriented x3 As
[2024-02-25] MEDS: ceFAZolin 3 GM/D5W 100 ML 100 ML IVPB (07:36)
--- NOTE | 2024-02-25 09:40 | W.PM.PROC2 ---
Procedure Note - Detailed Date of Procedure 02/25/24 Pre-op Diagnosis menorrhagia, fibroids Post-op Diagnosis Same Procedure Performed Total abdominal hysterectomy with bilateral salpingectomy Surgeon Micki Silva MD Anesthesia General Findings enlarged fibroid uterus Description of Procedure The patient is taken to the operating room and placed in the dorsal supine position under general anesthesia. She was prepped and draped in usual sterile fashion. Pfannenstiel skin incision was made with scalpel carried down to the underlying layer of fascia which was nicked in the midline. Bleeding vessels in the subcutaneous tissue are cauterized for hemostasis. The fascial incision was extended laterally using Green scissors. [facility] was used to tent fascia which was dissected off using sharp and blunt dissection. The peritoneum tented and entered with Metzenbaum scissors. The incision was extended with blunt traction. The bowel was packed away using laparotomy sponges. The Pedro retractor was placed. Uterus is grasped on the cornu with large Peon. The round ligaments were doubly ligated with 0 Vicryl, transected, and the anterior leaf of the broad ligament incised meeting in the midline. The bladder is dissected off using a sponge stick. The tube is grasped with a Jai and the window created in the posterior leaf of the broad ligament. The utero-ovarian ligament was doubly clamped with Z-clamps, transected, suture ligated with 0 Vicryl. Identical procedure was performed on each side. The uterine vessels are skeletonized, clamped, transected, and suture ligated with Vicryl. The cardinal ligaments are serially clamped, transected, and suture ligated with 0 Vicryl. The uterosacral ligament is clamped and transected. Due to the deep pelvis and the inability to see the base of the pedicle well, the specimen was amputated using Andry scissors in the middle of the cervix due to the deep pelvis. The uterosacral ligaments were then suture ligated with 0 Vicryl and tagged for future use. The scalpel was used to enter the vaginal cuff which was then grasped with an Allis clamp. The cervix is amputated using Andry scissors grasping the vaginal cuff with Allis clamps as amputation progressed. The vaginal cuff was then closed using 0 Vicryl in a running locked fashion. The angles were tied to the ipsilateral uterosacral ligaments. The left ovarian pedicle is not hemostatic. The bleeding site grasped with a DeBakey and suture ligated with a antdhz-ha-rxfuz 0 Vicryl. Good hemostasis is obtained and the ovary has good blood flow. The pelvis is irrigated and noted to be hemostatic at all pedicles and the vaginal cuff. The retractor and sponges are removed. The fascia was closed using 0 Vicryl in a running fashion. Subcutaneous tissues were irrigated made hemostatic using Bovie cautery. The skin is closed in a subcuticular fashion with 4-0 Vicryl. Skin glue is applied. Patient is awakened from anesthesia and taken to recovery in stable condition. Patient received Ancef prior to incision. Sponge, needle, and instrument counts are correct per the OR staff. Estimated Blood Loss 200 Drains Yes ( Corrales catheter) Packing No Pathology Yes ( uterus with cervix and tubes) Complications No immediate complications Condition Stable Disposition PACU
--- NOTE | 2024-02-25 09:48 | PM.DS ---
DS: Admitting Diagnosis Discharge Date 02/27/24 Admitting Diagnosis menorrhagia with fibroid DS: Discharge Diagnosis Discharge Diagnosis (1) Status post total abdominal hysterectomy: Code(s): Z90.710 - Acquired absence of both cervix and uterus Status: Acute DS: Summary Hospital Course Hospital Course: At the time of discharge, the patient is tolerating regular diet, voiding, and ambulating without difficulty. Pain control is adequate. Status at Discharge Functional status at discharge: independent ambulation Overall status at discharge: patient is progressing back to baseline Time Spent with Patient Time attestation: Total time spent providing and/or coordinating discharge services: DS: Data Data Completed and Pending Pending studies at discharge: Pending at discharge 02/25/24 09:24 Surgical [PTH] Routine Labs on day of discharge: Labs from last 24 hours 02/25/24 06:49 POC Capillary Glucose 104 Discharge Plan Discharge Attending physician on discharge: Micki Silva Consulting providers: Solange Polo; Goran Fam; Praful Schneider Discharging Clinician: Solange Polo Anticipated Discharge Date/Time: 02/27/24 07:51 Patient Disposition: Home, Self-Care Activity: may shower, no driving and pelvic rest Diet: as tolerated and regular Wound Care Instructions: follow printed instructions Patient Instructions: Hysterectomy (DC) Stand Alone Forms: General Discharge Instructions Follow-up/Referrals: Micki Silva MD [Physician] - (1 week incision check 6 weeks post op) Discharge Medications: New hydrocodone-acetaminophen 5-325 mg Tablet 1 tablet PO Q3H PRN (Reason: Pain Rated 5 Or Less) 7 Days Qty: 10 0RF ibuprofen 600 mg Tablet 600 mg PO Q6H PRN (Reason: Cramping) 30 Days Qty: 30 0RF Continued omega 3-xqu-lbi-fish oil [Fish Oil] 1,200 (144-216) mg Capsule 2 cap PO DAILY metformin 500 mg tablet extended release 24 hr See Rx Instructions PO .COMPLEX Qty: 180 1RF Patient Comments: dosing = week 3 per patient patient states she takes for insulin resistance Rx Instructions: orally; week 1: 1 po q dinner. week2: 1 po breakfast and dinner. week 3: 1 po break/ 2 po dinner. week 4: 2 po break/2 po dinner metoprolol succinate 50 mg tablet extended release 24 hr 50 mg PO DAILY Qty: 90 3RF albuterol sulfate [ProAir HFA] 90 mcg/actuation HFA aerosol inhaler 2 inh inhalation Q4H Qty: 8.5 1RF Date of admission: 02/25/24 10:59 Primary Care Provider: Nicole Aceves Admitting Provider: Micki Silva Attending physician on admission: Micki Silva Condition: Stable
[2024-02-25 10:01] LABS: Glucose Point of Care 110 mg/dl (65-105)
[2024-02-25] MEDS: fentaNYL CITRATE INJ (*CRX) 100 MCG/2 ML VIAL 25 MCG IV PUSH ×6 (10:06→10:28)
--- NOTE | 2024-02-25 10:07 | SUR.PHASEI ---
1005: Simple mask removed.
[2024-02-25] MEDS: DEXTROSE 5%/LACTATED RINGERS 1,000 ML 125 ML IV CONT ×2 (11:33→19:11)
[2024-02-25] MEDS: KETOROLAC 30 MG/ML VIAL (*BKC) IV PUSH ×2 (11:34→19:00)
--- NOTE | 2024-02-25 13:17 | OBPPTRN ---
1107 Patient transferred to post room #289 via bed. Support person present. Oriented to unit, room, information board, admission packet and security measures. Patient verbalizes understanding.
[2024-02-25] MEDS: SIMETHICONE 80 MG TAB.CHEW PO ×2 (13:37→19:00)
[2024-02-25] MEDS: FENTANYL 600MCG/NS30MLPCA(*CRX 600 MCG/30 ML PCA.VIAL IV CONT (13:38)
[2024-02-26] VITALS (8 sets, daily range): BP systolic 129–147; BP diastolic 73–90; PULSE 80–97; RESP 14–18; TEMP 36.6–37.1; O2SAT 97–99
[2024-02-26] MEDS: DEXTROSE 5%/LACTATED RINGERS 1,000 ML 125 ML IV CONT (03:01)
[2024-02-26 06:05] LABS: Basophils Percent Auto 0.2 % (0.2-1.2); Eosinophils Absolute Auto 0.1 K/mm3 (0-0.3); Hematocrit 40.1 % (37.0-47.0); Hemoglobin 13.4 g/dL (12.0-15.0); Immature Granulocyte Absolute 0.03 K/mm3 (0.00-0.031); Immature Granulocyte Percent A 0.3 % (0-0.5); Lymphocytes Absolute Auto 2.16 K/mm3 (0.9-3.2); Lymphocytes Percent Auto 19.9 % (18.3-44.2); Mean Corpuscular HGB Conc 33.4 g/dl (32-36); Mean Corpuscular Hemoglobin 31.6 pg (26-34); Mean Corpuscular Volume 94.6 fl (80-100); Mean Platelet Volume 9.5 fl (7.4-10.4); Monocytes Absolute Auto 0.9 K/mm3 (0.1-0.6); Monocytes Percent Auto 7.8 % (2.6-8.5); Neutrophils Absolute Auto 7.7 K/mm3 (1.3-6.7); Neutrophils Percent Auto 70.8 % (45.5-73.1); Platelet Count Result 225 k/mm3 (150-375); Red Blood Count 4.24 M/mm3 (4.2-5.4); Red Cell Distribution Width 13.7 % (11.5-14.5); White Blood Count 10.8 K/mm3 (4.5-10.0)
[2024-02-26] MEDS: SIMETHICONE 80 MG TAB.CHEW PO ×3 (06:42→19:59)
[2024-02-26] MEDS: IBUPROFEN 600 MG TABLET PO ×3 (06:42→19:59)
[2024-02-26] MEDS: HYDROcodone/acetaminophen (*CRX) 5-325 MG TABLET 1 TAB PO ×3 (06:43→19:59)
--- NOTE | 2024-02-26 07:37 | PM.GYNPNOP ---
PALS NURSE - A/P Postoperative Procedures: Procedures Operation Date: 02/25/24 07:30 Actual Procedure Side Surgeon p Total Abdominal Hysterectomy with Bilateral Salpingectomy Bilateral Micki Silva MD Postoperative day: 1 Postoperative status: doing well Postoperative plan: routine post-op care Time Spent With Patient Time: Total time spent is greater than 50% in coordination of care (as documented) at patient's floor/unit and/or counseling patient: Time with patient: less than 15 minutes PALS NURSE- PN:Subj Post-Op Subjective Date/time seen: 02/26/24 07:37 Subjective: patient has no complaints, pain is well controlled and patient is tolerating oral intake Exam Narrative: abdomen soft, nt, nd inc c/d/i PALS NURSE - PN: Obj Data Vital Signs Vital Signs: Vital Signs - 24 hr 02/25/24 09:39 02/25/24 09:55 02/25/24 10:10 Temperature 97.4 F L Pulse Rate 71 70 69 Respiratory Rate 19 22 H 12 Blood Pressure 127/80 138/83 129/81 Pulse Oximetry 99 100 96 Oxygen Delivery Simple Face Mask Simple Face Mask Room Air Oxygen Flow Rate 6 8 02/25/24 10:25 02/25/24 10:40 02/25/24 13:38 Temperature 97.8 F Pulse Rate 72 71 Respiratory Rate 17 16 16 Blood Pressure 135/87 140/85 Pulse Oximetry 91 97 97 Oxygen Delivery Room Air Nasal Cannula Oxygen Flow Rate 2 02/25/24 17:02 02/25/24 11:07 02/25/24 11:07 Temperature 97.2 F L Pulse Rate 69 Respiratory Rate 16 Blood Pressure 137/83 Pulse Oximetry 98 98 98 Oxygen Delivery Nasal Cannula Oxygen Flow Rate 2 02/25/24 15:55 02/25/24 15:55 02/25/24 14:00 Temperature 97.9 F Pulse Rate 89 69 Respiratory Rate 18 16 16 Blood Pressure 145/87 H Pulse Oximetry 99 98 97 Oxygen Delivery Nasal Cannula Oxygen Flow Rate 2 02/25/24 15:00 02/25/24 16:00 02/25/24 17:00 Temperature Pulse Rate Respiratory Rate 16 16 18 Blood Pressure Pulse Oximetry 98 98 98 Oxygen Delivery Oxygen Flow Rate 02/25/24 18:00 02/25/24 18:30 02/25/24 20:00 Temperature 98.0 F Pulse Rate 88 Respiratory Rate 18 16 Blood Pressure 151/86 H Pulse Oximetry 99 99 Oxygen Delivery Room Air Oxygen Flow Rate 02/25/24 20:00 02/25/24 20:00 02/25/24 22:00 Temperature 98.2 F 98.0 F Pulse Rate 81 99 Respiratory Rate 16 15 17 Blood Pressure 143/86 H 146/79 H Pulse Oximetry 99 99 100 Oxygen Delivery Oxygen Flow Rate 02/26/24 00:00 02/26/24 01:59 02/26/24 04:00 Temperature 97.8 F 97.9 F 97.9 F Pulse Rate 86 97 93 Respiratory Rate 17 14 16 Blood Pressure 142/88 H 147/86 H 147/88 H Pulse Oximetry 97 99 98 Oxygen Delivery Oxygen Flow Rate 02/25/24 20:00 02/25/24 22:00 02/26/24 00:00 Temperature Pulse Rate Respiratory Rate 16 17 17 Blood Pressure Pulse Oximetry 99 98 98 Oxygen Delivery Oxygen Flow Rate 02/26/24 02:00 02/26/24 04:00 02/26/24 06:30 Temperature Pulse Rate Respiratory Rate 14 16 16 Blood Pressure Pulse Oximetry 99 98 98 Oxygen Delivery Oxygen Flow Rate Intake/Output Intake/Output: Intake & Output 02/23/24 02/24/24 02/25/24 02/26/24 23:59 23:59 23:59 23:59 Intake Total 2419.7 1689.2 Output Total 2330 2300 Balance 89.7 -610.8 Meds/Results Medications: Active Medications Generic Name Dose Route Start Last Admin Trade Name Freq PRN Reason Stop Dose Admin Hydrocodone Bitart/Acetaminophen 1 tab 02/25/24 10:59 Hydrocodone/Acetaminophen (*Crx) 10-325 Mg Tablet PO Q3H PRN Pain Rated 6 or Greater Hydrocodone Bitart/Acetaminophen 1 tab 02/25/24 10:59 02/26/24 06:43 Hydrocodone/Acetaminophen (*Crx) 5-325 Mg Tablet PO 1 tab Q3H PRN Administration Pain Rated 5 or Less Ibuprofen 600 mg 02/25/24 10:59 02/26/24 06:42 Ibuprofen 600 Mg Tablet PO 600 mg Q6H PRN Administration Cramping Ketorolac Tromethamine 30 mg 02/25/24 10:59 02/25/24 19:00 Ketorolac 30 Mg/Ml Vial (*Bkc) IV PUSH 03/01/24 10
--- NOTE | 2024-02-26 07:42 | P.PNAN_ITS ---
Anes - Prog Note Post-Op Date/Time: 02/26/24 07:42 Cardiovascular status: normal Respiratory status: normal Airway patency: baseline Mental status: baseline Post-Op hydration status: normal Vital Signs: Last Vital Signs Temp 36.6 C 02/26/24 04:00 Pulse 93 02/26/24 04:00 Resp 16 02/26/24 06:30 BP 147/88 H 02/26/24 04:00 Pulse Ox 98 02/26/24 06:30 O2 Del Method Room Air 02/25/24 20:00 O2 Flow Rate 2 02/25/24 15:55 Pain Score (VAS): 11/03 I/O: Intake & Output 02/25/24 02/25/24 02/26/24 15:59 23:59 07:59 Intake Total 860 1559.7 1689.2 Output Total 80 2250 2300 Balance 780 -690.3 -610.8 Laboratory Tests 02/26/24 05:05 02/25/24 02/26/24 09:58 05:05 WBC 10.8 H RBC 4.24 Hgb 13.4 Hct 40.1 MCV 94.6 MCH 31.6 MCHC 33.4 RDW 13.7 Plt Count 225 MPV 9.5 Immature Gran % (Auto) 0.3 Neut % (Auto) 70.8 Lymph % (Auto) 19.9 Hancock % (Auto) 7.8 Eos % (Auto) 1.0 Baso % (Auto) 0.2 Lymph # (Auto) 2.16 Hancock # (Auto) 0.9 H Eos # (Auto) 0.1 Baso # (Auto) 0.0 Abs Immat Gran (auto) 0.03 Absolute Neuts (auto) 7.7 H Absolute Nucleated RBC 0.000 Nucleated RBC % 0.0 POC Capillary Glucose 110 H Post-procedural complaints: none Patient Feedback: Patient satisfied with anesthetic care.
[2024-02-27 04:00] VITALS: BP 142/86; PULSE 82; RESP 18; TEMP 36.2; O2SAT 99
[2024-02-27] MEDS: IBUPROFEN 600 MG TABLET PO (04:57)
[2024-02-27] MEDS: HYDROcodone/acetaminophen (*CRX) 5-325 MG TABLET 1 TAB PO (04:58)
[2024-02-27] MEDS: SIMETHICONE 80 MG TAB.CHEW PO (07:08)
--- NOTE | 2024-02-27 07:49 | PM.GYNPNOP ---
COMFORT STATION ATTENDANT - A/P Postoperative Procedures: Procedures Operation Date: 02/25/24 07:30 Actual Procedure Side Surgeon p Total Abdominal Hysterectomy with Bilateral Salpingectomy Bilateral Micki Silva MD Postoperative day: 2 Postoperative status: doing well Postoperative plan: discharge Time Spent With Patient Time: Total time spent is greater than 50% in coordination of care (as documented) at patient's floor/unit and/or counseling patient: Time with patient: less than 15 minutes COMFORT STATION ATTENDANT- PN:Subj Post-Op Subjective Date/time seen: 02/27/24 07:15 Interval history: POD 2 from [facility] with bilateral salpingectomy. Ambulating in room. Tolerating regular diet. Passing flatus. Pain well controlled. No complaints. Subjective: patient desires discharge and pain is well controlled Review of Systems Review of Systems: All systems reviewed & are unremarkable except as noted in HPI and below Exam Const: General: cooperative, no acute distress and awake Orientation/consciousness: patient oriented x3 Limitations: no limitations Resp: Effort & Inspection: normal respiratory effort and able to speak in complete sentences Auscultation: clear to auscultation bilaterally Cardio: Rate: regular rate Peripheral pulses: Peripheral pulses 2+ throughout GI: Inspection: normal to inspection Auscultation: normal bowel sounds : General: Yes bladder normal to palpation Skin: General skin exam: normal color Other: Incision C/D/I Neuro: General: patient oriented x3 Cognition (Neuro): normal cognition Speech: normal speech Extrem: General: normal to inspection Psych: Appearance: grossly normal Mental Status: mental status grossly normal Speech and movement: Normal speech and movement present Affect: normal affect Attitude: cooperative Thought process: Normal thought process present COMFORT STATION ATTENDANT - PN: Obj Data Vital Signs Vital Signs: Vital Signs - 24 hr 02/26/24 08:15 02/26/24 19:00 02/26/24 21:15 Temperature 98.8 F 98.4 F Pulse Rate 80 81 Respiratory Rate 16 18 Blood Pressure 142/90 H 147/74 H 129/73 Pulse Oximetry 98 98 02/27/24 04:00 Temperature 97.2 F L Pulse Rate 82 Respiratory Rate 18 Blood Pressure 142/86 H Pulse Oximetry 99 Intake/Output Intake/Output: Intake & Output 02/24/24 02/25/24 02/26/24 02/27/24 23:59 23:59 23:59 23:59 Intake Total 2419.7 2029.2 Output Total 2330 2700 Balance 89.7 -670.8 Meds/Results Medications: Active Medications Generic Name Dose Route Start Last Admin Trade Name Freq PRN Reason Stop Dose Admin Hydrocodone Bitart/Acetaminophen 1 tab 02/25/24 10:59 Hydrocodone/Acetaminophen (*Crx) 10-325 Mg Tablet PO Q3H PRN Pain Rated 6 or Greater Hydrocodone Bitart/Acetaminophen 1 tab 02/25/24 10:59 02/27/24 04:58 Hydrocodone/Acetaminophen (*Crx) 5-325 Mg Tablet PO 1 tab Q3H PRN Administration Pain Rated 5 or Less Ibuprofen 600 mg 02/25/24 10:59 02/27/24 04:57 Ibuprofen 600 Mg Tablet PO 600 mg Q6H PRN Administration Cramping Ketorolac Tromethamine 30 mg 02/25/24 10:59 02/25/24 19:00 Ketorolac 30 Mg/Ml Vial (*Bkc) IV PUSH 03/01/24 10:58 30 mg Q6H PRN Administration Pain Rated 4-6 Metformin HCl 0 mg 02/25/24 10:59 Metformin Hcl Xr 500 Mg Tab.Sr.24h PO .COMPLEX CHANTAL Metoprolol Succinate 50 mg 02/26/24 09:00 02/26/24 11:25 Metoprolol Succinate Ext Rel 50 Mg Tabcr PO Not Given DAILY CHANTAL Miscellaneous Information 1 each 02/25/24 00:01 Metformin Xr Directions: Orally; Week 1: 1 Po Q Dinner. Week2: 1 Po Breakfast And Dinner. XX 03/26/24 00:00 CLARIFY CHANTAL Ondansetron HCl 4 mg 02/25/24 10:59 Ondansetron Inj 4 Mg/2 Ml Vial IV PUSH Q6H PRN Nausea Simethicone 80 mg 02/25/24 12:00 02/27/24 07:08 Simethicone 80 Mg Tab.Chew PO 80 mg TIDWM CHANTAL Administration Labs 02/26/24 05:05
[2024-02-27 08:45] VITALS: BP 142/99; PULSE 78; RESP 18; TEMP 37.1; O2SAT 96
== END 2024-02-27 09:25 | disposition home or self-care (01) | DRG 742 ==
LOC: ANHOB2 11:03
PROVIDERS: Admitting Provider Obstetrics & Gynecology Gynecology; PCP Family Medicine; Visit Provider Obstetrics & Gynecology Gynecology
PROC: 0UT94ZZ Resection of Uterus, Percutaneous Endoscopic Approach (ICD-10-PCS; principal; 2024-02-25 07:30)
DX: D25.9 Leiomyoma of uterus, unspecified (principal); Z68.41 Body mass index [BMI] 40.0-44.9, adult; N92.0 Excessive and frequent menstruation with regular cycle; I10 Essential (primary) hypertension; E66.01 Morbid (severe) obesity due to excess calories; Z87.442 Personal history of urinary calculi; Z90.49 Acquired absence of other specified parts of digestive tract
CPT/HCPCS: 36415; 82948; 85025; 88307; A9270; J0690; J1100; J1885; J2250; J2405; J2704; J3010; J7120; J7121

== ENCOUNTER 2024-04-18 14:01 | Outpatient (CLI) | payer OTHER, SELFPAY ==
--- NOTE | ~2024-04-18 | XR_ITS ---
EXAMINATION: XR abdomen/kub 1V DATE: 04/18/2024 14:33 INDICATION: Renal stone TECHNIQUE: A supine view of the abdomen on 2 radiographs was obtained. COMPARISON: CT dated 04/18/2024 FINDINGS: No dilated loops of gas-filled bowel. There are multiple stones in the left kidney the largest measur ing up to 8 mm in maximal diameter. Multiple stones at the upper pole of the right kidney measuring u p to 5 mm. No evident ureteral stones. Mild lumbar levocurvature with moderate spondylosis. IMPRESSION: 1. Bilateral nephrolithiasis. Reviewed, dictated and finalized at location A.
--- NOTE | ~2024-04-18 | CT_ITS ---
EXAMINATION: CT abdomen pelvis wo con DATE: 04/18/2024 14:27 INDICATION: Kidney stones. TECHNIQUE: Computed tomography (CT) of the abdomen and pelvis was performed without intravenous contr ast. Automated exposure control and iterative reconstruction technique were employed. The dose-length product was 1182.49 mGy-cm. COMPARISON: CT abdomen and pelvis 07/01/2021 FINDINGS: The visualized portions of the lung bases demonstrate mild atelectasis. No pleural effusion . The heart size is normal. No pericardial effusion. There is diffuse hepatic steatosis. There are ch anges of cholecystectomy. Calcifications in the spleen are consistent with old granulomatous disease. The pancreas and right adrenal gland are normal. There is a 15 mm mass in left adrenal gland without change measuring low attenuation, consistent with an adenoma. There are approximately 9 stones in ri ght kidney measuring up to 6 mm. There are greater than 10 stones in left kidney measuring up to 7 mm . There are no dilated loops of bowel. The appendix is normal. There are no pathologically enlarged l ymph nodes. There is no free intraperitoneal fluid. There is a supraumbilical ventral hernia containi ng fat. There is severe lower lumbar spondylosis. IMPRESSION: 1. Bilateral nonobstructing kidney stones. Reviewed, dictated and finalized at location A.
== END 2024-04-18 14:02 | disposition home or self-care (01) ==
PROVIDERS: PCP Family Medicine; Visit Provider Nurse Practitioner Family
DX: N20.0 Calculus of kidney (principal)
CPT/HCPCS: 74018; 74176

== ENCOUNTER 2024-06-21 08:40 | Outpatient (CLI) | payer OTHER, SELFPAY ==
[2024-06-21 09:27] LABS: INR 0.9; Partial Thromboplastin Time 23.1 Seconds (22.3-36.8); Prothrombin Time 12.8 Seconds (11.1-14.7)
== END 2024-06-21 08:41 | disposition home or self-care (01) ==
LOC: ANHLAB 08:41
PROVIDERS: PCP Family Medicine; Visit Provider Urology
DX: Z01.818 Encounter for other preprocedural examination (principal); N20.0 Calculus of kidney
CPT/HCPCS: 36415; 85610; 85730; 87086

== ENCOUNTER 2024-06-27 03:02 | Day surgery (SDC) | payer OTHER, SELFPAY ==
[2024-06-19 13:00] VITALS: BMI 44.7
--- NOTE | 2024-06-19 13:04 | PC.NURSE ---
Report to the Outpatient Waiting Room, entrance under the green pavilion located off [facility], at time _1000_ on date _[id number]_. Planned Procedure Time: _1200_.? Time changes happen often and if your time is changed the preop area will call you the afternoon before. - You and your visitor will be asked to self-screen and do not enter if you have any COVID symptoms. Please call surgeon if you need to reschedule. - A mask is optional within the hospital at this time. Patients may have clear liquids (water, carbonated beverages, clear teas, apple juice) until 3 hours prior to surgery with a maximum of 20 ounces. - No food from midnight until time of surgery and no smoking Take only the following medications with a SIP of water on the morning of surgery: ___Metoprolol, and if needed may use inhaler___ DO NOT STOP ANY OF YOUR OTHER PRESCRIPTION MEDICATIONS PRIOR TO SURGERY EXCEPT THE FOLLOWING Medications to discontinue per physician __Fish oil____ Date to take last seck_[id number]__ Please no make-up, nail amharic, hairspray, perfume, deodorant, or body powder the day of surgery.? No jewelry (including any body piercings) or valuables the day of surgery, leave them at home.? Please take a shower or bath the night before, or the morning of, surgery with an antibacterial soap.? Wear comfortable, loose fitting clothing.? - Jewelry must be removed prior to entering the operating room.? Rings and piercings that are not removed may be cut off. - The hospital will not accept responsibility for valuables.? - Please leave all valuables, including medications, at home the day of surgery. If you are going home after surgery, a licensed grab driver must drive you home.? - NO public transportation without another adult if you receive anesthesia. - We recommend that an adult stay with you for 24 hours following discharge. - We also recommend that you do not drive, make important decision, drink alcoholic beverages, or take any drugs that were not prescribed by your health care provider for at least 24 hours after your discharge time. Follow any additional instructions given to you from your surgeon. Telephone instructions given to __Jazmyne___and asked if any additional questions and then verbalized understanding. Patient advised to call surgeon office or pre surgery nurse liaison [phone] if any additional questions.
--- NOTE | ~2024-06-27 | XR_ITS ---
EXAMINATION: XR abdomen/kub 1V DATE: 06/27/2024 10:10 INDICATION: Kidney stone. TECHNIQUE: A supine view of the abdomen on 2 radiographs was obtained. COMPARISON: CT abdomen and pelvis 04/18/2024, radiographs 04/18/2024 FINDINGS: There are no dilated loops of bowel. Surgical clips in the right upper quadrant are likely from cholecystectomy. There are two 3 mm stones in right kidney. There are at least 6 stones in left kidney measuring up to 10 mm. There are phleboliths in the pelvis. IMPRESSION: 1. Bilateral kidney stones. Reviewed, dictated and finalized at location B. IMPRESSION: 1. Bilateral kidney stones.
--- NOTE | 2024-06-27 06:34 | WPDHPUPDATE1 ---
History and Physical Update Update Date/Time: 06/27/24 06:34 History and Physical has been reviewed, including an updated exam of the patient. There are NO changes in the patient's condition. Risks, benefits, and alternatives have been discussed and questions answered. Patient agrees to proceed with procedure.
[2024-06-27 10:12] VITALS: BMI 44.9
[2024-06-27] MEDS: LACTATED RINGERS 1,000 ML 30 ML IV CONT (10:30)
--- NOTE | 2024-06-27 10:55 | WPDANESEPPF ---
Anes - Initial Pre Proc Eval Procedure: Operation Date: 06/27/24 12:00 Proposed Procedures p Left Extracorporeal Shock Wave Lithotripsy - Cyrus Acosta MD Date/Time: 06/27/24 10:55 Surgeon: Cyrus Acosta MD Pre Op Diagnosis: left kidney stone Patient Data Age: 39 Gender: F Height: 1.73 m Weight: 133.6 kg Allergies Allergy/AdvReac Type Severity Reaction Status Date / Time lisinopril Allergy Severe Cough Verified 06/19/24 12:59 Sulfa (Sulfonamide Allergy Unknown unknown Verified 06/19/24 12:59 Antibiotics) sulfanilamide Allergy Unknown unknown Verified 06/19/24 12:59 amlodipine AdvReac Severe ankle Verified 06/19/24 12:59 swelling Home Medications Medication Instructions Recorded Confirmed Type omega 0-bej-obv-fish oil 1,200 mg 2 cap PO DAILY 02/14/24 06/19/24 History (144 mg-216 mg) capsule (Fish Oil) metoprolol succinate 50 mg 50 mg PO DAILY #90 tabs 02/21/24 06/19/24 Rx tablet,extended release 24 hr albuterol sulfate 90 mcg/actuation 2 inh inhalation Q4H wheezing/ 02/25/24 06/19/24 Rx aerosol inhaler (ProAir HFA) shortness of breath #8.5 grams metformin 500 mg tablet,extended See Rx Instructions PO .COMPLEX 06/09/24 06/19/24 Rx release 24 hr #180 tabs Patient hx anesthesia problems: none Family hx anesthesia problems: none Results Review: All pre-operative results and documents have been reviewed as part of the pre-operative evaluation. [facility] Past Medical History Medical History History of kidney stones Hypertension (normal spontaneous vaginal delivery) x2 Surgical History Surgical History (Updated 02/25/24 @ 09:48 by Micki Silva MD) History of bilateral tubal ligation Essure 2012 History of breast biopsy X2-- 2019 and 2022 both benign History of cholecystectomy History of endometrial ablation History of hysteroscopy History of removal of cyst wrist History of tonsillectomy Family History Family History Mother Family history of malignant neoplasm of breast in first degree relative Breast cancer Grandparent Family history of coronary artery disease Father Lung cancer Testicular cancer Other Breast cancer BRCA negative Other Diabetes mellitus Social History Social History Smoking status: Never smoker Second hand tobacco smoke exposure: No Alcohol intake: never Alcohol use details: very rarely maybe one time per year Substance use: never Substance use type: does not use Do You Feel Safe in your Home?: Yes Lack of Transportation: No Lack of Food: Never True Current Housing: I Have Housing Concerned About Future Housing: No Difficulty Paying Gas/Electric Bills: No Difficulty Paying for Meds: No Currently Unemployed: No Education: High School Diploma/GED Difficulty w/ Childcare or Family Care: No Living arrangements: with family Occupation/Education: unemployed Spiritual care concerns: No Anes - Eval Final PreProcedure Day of Procedure 06/27/24 10:55 Patient weight: morbidly obese Heart: regular rate and rhythm Lungs: clear to auscultation Airway: Mallampati scale class III Neurological: alert and oriented Last oral intake: >/= 8 hours ASA classification: III Emergent: no Anesthetic plan: proceed Anesthesia type and monitoring: general LMA and standard monitoring Results Review: All pre-operative results and documents have been reviewed as part of the pre-operative evaluation. Informed Consent: The patient's anesthetic plan and its attendant risks and benefits were discussed with the patient/family/POA. Questions were solicited and answers provided to the satisfaction of the patient/family/POA.
[2024-06-27 10:56] VITALS: BP 177/105; PULSE 79; RESP 14; TEMP 36.7; O2SAT 100
--- NOTE | 2024-06-27 11:15 | SUR.PREOP ---
1115- Notified Dr. Fam patient's BP elevated with HR in 70's. Dr. Fam aware BP 177/105 and OK to proceed with procedure.
[2024-06-27] MEDS: ceFAZolin 3 GM/D5W 100 ML 100 ML IVPB (11:32)
--- NOTE | 2024-06-27 11:50 | W.PM.PROC2 ---
Procedure Note - Detailed Date of Procedure 06/27/24 Pre-op Diagnosis Left kidney stone Post-op Diagnosis Same Procedure Performed Left ESWL Surgeon Cyrus Acosta MD Anesthesia General Description of Procedure The patient was brought to the operative suite where she was placed in the supine position on the Dornier lithotripsy table. the focal point of Lithotripter was placed stones in her left kidney. We gave 600 shocks to the smaller 2 uppermost stones in the left upper and mid pole then given additional 1300 to larger stone lower pole. Lower most stone we were unable to treat today. There appeared to be good fragmentation of the stones. The patient tolerated the procedure well and was taken to the recovery room in good condition.
[2024-06-27 12:17] VITALS: BP 120/80; PULSE 75; RESP 24; TEMP 36.4; O2SAT 97
[2024-06-27 12:30] VITALS: BP 129/90; PULSE 75; RESP 14; O2SAT 97
[2024-06-27 12:45] VITALS: BP 151/94; PULSE 69; RESP 16; O2SAT 97
[2024-06-27 12:48] VITALS: BP 159/103; PULSE 64; RESP 18
[2024-06-27 13:15] VITALS: BP 165/113; PULSE 62
== END 2024-06-27 13:40 | disposition home or self-care (01) ==
PROVIDERS: PCP Family Medicine; Visit Provider Urology
PROC: (CPT 50590; principal; 2024-06-27 12:00)
DX: N20.0 Calculus of kidney (principal); I10 Essential (primary) hypertension; G47.30 Sleep apnea, unspecified; E66.01 Morbid (severe) obesity due to excess calories; Z68.42 Body mass index [BMI] 45.0-49.9, adult; Z79.51 Long term (current) use of inhaled steroids; Z79.84 Long term (current) use of oral hypoglycemic drugs; Z98.890 Other specified postprocedural states; Z90.49 Acquired absence of other specified parts of digestive tract; Z98.51 Tubal ligation status; Z98.891 History of uterine scar from previous surgery; Z80.3 Family history of malignant neoplasm of breast; Z80.1 Family history of malignant neoplasm of trachea, bronchus and lung; Z80.43 Family history of malignant neoplasm of testis; Z82.49 Family history of ischemic heart disease and other diseases of the circulatory system
CPT/HCPCS: 50590; 74018; J0690; J2003; J2250; J2405; J2704; J3010; J7120

== ENCOUNTER 2024-07-09 13:22 | Outpatient (CLI) | payer OTHER, SELFPAY ==
--- NOTE | ~2024-07-09 | MM_ITS ---
EXAMINATION: MM screening randa BI w boris HISTORY: Screening mammogram, family history of breast cancer in her mother. TECHNIQUE: Craniocaudal and mediolateral oblique 3-D tomosynthesis images were obtained and synthetic 2-D images were generated. CAD analysis was submitted and interpreted. COMPARISON: 01/29/2023, 07/12/2022, 04/20/2021 BREAST PARENCHYMAL COMPOSITION:Not Dense. There are scattered areas of fibroglandular density. FINDINGS: 2.4 cm lobulated mass at the outer subareolar left breast is present, increased in size fro m prior exam. There is an adjacent biopsy clip. No suspicious parenchymal abnormality of the right br east. No suspicious metastatic opacifications. IMPRESSION: 2.4 cm left breast mass is significantly increased from prior exam. Given increase in size, ultrasoun d is recommended to further assess, despite apparent prior biopsy of the lesion, with an adjacent bio psy clip. BI-RADS Category 0: Incomplete: Needs additional imaging evaluation. Reviewed, dictated and finalized at location M. AL MEDIA DESIGNER IMPRESSION: 2.4 cm left breast mass is significantly increased from prior exam. Given incre ase in size, ultrasound is recommended to further assess, despite apparent prio r biopsy of the lesion, with an adjacent biopsy clip. BI-RADS Category 0: Incomplete: Needs additional imaging evaluation.
== END 2024-07-09 13:23 | disposition home or self-care (01) ==
LOC: CHSIMG 13:24
PROVIDERS: PCP Family Medicine; Visit Provider Obstetrics & Gynecology Gynecology
DX: Z12.31 Encounter for screening mammogram for malignant neoplasm of breast (principal); R92.8 Other abnormal and inconclusive findings on diagnostic imaging of breast
CPT/HCPCS: 77063; 77067

== ENCOUNTER 2024-07-15 12:26 | Outpatient (CLI) | payer OTHER, SELFPAY ==
--- NOTE | ~2024-07-15 | XR_ITS ---
XR abdomen/kub 1V Ordering provider: yCrus Acosta MD History: . N20.0 - Calculus of kidney, ROUTINE F/U . Comparison: June 27, 2024 FINDINGS: BOWEL: Nonobstructive bowel gas pattern. ORGANOMEGALY: None. SIGNIFICANT PATHOLOGIC CALCIFICATIONS: Bilateral kidney stones more on the left side.Tiny calcificati on in the right side of the pelvis which may be a stone. OTHER: No free air is seen under the diaphragm. IMPRESSION: NO ACUTE ABDOMINAL FINDINGS. Bilateral renal stones. Tiny calcification in the right side of the pelvis which may be a stone. Reviewed, dictated and finalized at location A. ZIFF DAVIS
== END 2024-07-15 12:27 | disposition home or self-care (01) ==
PROVIDERS: PCP Family Medicine; Visit Provider Urology
DX: N20.0 Calculus of kidney (principal)
CPT/HCPCS: 74018

== ENCOUNTER 2024-07-18 09:12 | Outpatient (CLI) | payer OTHER, SELFPAY ==
--- NOTE | ~2024-07-18 | US_ITS ---
EXAMINATION TYPE: US breast LT limited COMPARISON: Mammography dated 07/09/2024 REASON FOR STUDY: ABNORMAL MAMM; LEFT BREAST MASS TECHNIQUE: Targeted sonographic evaluation of the left breast was performed. INTERPRETATION: At the 5:00 position left breast, 3 cm from nipple, there is a 1.8 x 1.4 x 1.9 cm anechoic cystic str ucture with minimally lobulated borders and posterior through transmission. IMPRESSION: 1.8 x 1.4 x 1.9 cm cyst or seroma at the site of prior biopsy. No solid or otherwise suspicious lesio ns seen in the region scanned. BI-RADS CATEGORY: BI-RADS 2: Benign Reviewed, dictated and finalized at location . ATIONS BOARDMAN IMPRESSION: 1.8 x 1.4 x 1.9 cm cyst or seroma at the site of prior biopsy. No solid or othe rwise suspicious lesions seen in the region scanned. BI-RADS CATEGORY: BI-RADS 2: Benign
== END 2024-07-18 09:13 | disposition home or self-care (01) ==
PROVIDERS: PCP Family Medicine; Visit Provider Obstetrics & Gynecology Gynecology
DX: N63.20 Unspecified lump in the left breast, unspecified quadrant (principal); R92.8 Other abnormal and inconclusive findings on diagnostic imaging of breast
CPT/HCPCS: 76642

== ENCOUNTER 2024-12-25 12:00 | Outpatient (CLI) | payer OTHER, SELFPAY ==
--- NOTE | ~2024-12-25 | XR_ITS ---
XR abdomen/kub 1V Ordering provider: Cyrus Acosta MD History: . KIDNEY STONE, LT SIDED PAIN . Comparison: July 15, 2024 FINDINGS: BOWEL: Nonobstructive bowel gas pattern. ORGANOMEGALY: None. SIGNIFICANT PATHOLOGIC CALCIFICATIONS: Bilateral kidney stones. Stone in the left mid ureter is noted measuring 1.2 cm. Stone in the left lower ureter also is not excluded measuring 7 mm.. Clinical dulce elation and if warranted noncontrast CT is advised.. OTHER: No free air is seen under the diaphragm. IMPRESSION: NO ACUTE ABDOMINAL FINDINGS. Bilateral kidney stones. Highly suggestive left ureteric stones. Reviewed, dictated and finalized at location A.
== END 2024-12-25 12:01 | disposition home or self-care (01) ==
PROVIDERS: PCP Family Medicine; Visit Provider Urology
DX: N20.0 Calculus of kidney (principal)
CPT/HCPCS: 74018

== ENCOUNTER 2024-12-26 01:40 | Day surgery (SDC) | payer OTHER, SELFPAY ==
[2024-12-25 14:47] VITALS: BMI 43.2
--- NOTE | 2024-12-25 15:07 | PC.NURSE ---
Report to the Outpatient Waiting Room, entrance under the green pavilion located off [facility], at time _11AM on date _12/26/24 . Planned Procedure Time: _1PM .? Time changes happen often and if your time is changed the preop area will call you the afternoon before. - You and your visitor will be asked to self-screen and do not enter if you have any COVID symptoms. Please call surgeon if you need to reschedule. - A mask is optional within the hospital at this time. Patients may have clear liquids (water, carbonated beverages, clear teas, apple juice) until 3 hours prior to surgery with a maximum of 20 ounces. - No food from midnight until time of surgery and no smoking, or chewing tobacco (or any form of nicotine). No chewing gum, candy or mints. Take only the following medications with a SIP of water on the morning of surgery: ___METOPROLOL, PAIN PILL NEEDED, FLOMAX, ALBUTEROL INHALER IF NEEDED DO NOT STOP ANY OF YOUR OTHER PRESCRIPTION MEDICATIONS PRIOR TO SURGERY EXCEPT THE FOLLOWING Hold all vitamins and supplements for 3 days per anesthesiologist. Medications to discontinue per physician FISH OIL-STOP TODAY Date to take last dose Please no make-up, nail welsh, hairspray, perfume, deodorant, or body powder the day of surgery.? No jewelry (including any body piercings) or valuables the day of surgery, leave them at home.? Please take a shower or bath the night before, or the morning of, surgery with an antibacterial soap.? Wear comfortable, loose fitting clothing.? - Jewelry must be removed prior to entering the operating room.? Rings and piercings that are not removed may be cut off. - The hospital will not accept responsibility for valuables.? - Please leave all valuables, including medications, at home the day of surgery. If you are going home after surgery, a licensed tractor trailer moving van driver must drive you home.? - NO public transportation without another adult if you receive anesthesia. - We recommend that an adult stay with you for 24 hours following discharge. - We also recommend that you do not drive, make important decision, drink alcoholic beverages, or take any drugs that were not prescribed by your health care provider for at least 24 hours after your discharge time. Follow any additional instructions given to you from your surgeon. Telephone instructions given to _ROD and asked if any additional questions and then verbalized understanding. Patient advised to call surgeon office or pre surgery nurse liaison [phone] if any additional questions.
[2024-12-26] VITALS (7 sets, daily range): BP systolic 119–144; BP diastolic 76–89; PULSE 89–97; RESP 14–23; TEMP 36.6–37.3; O2SAT 93–100; BMI 43.1
--- NOTE | ~2024-12-26 | XR_ITS ---
EXAMINATION: XR retrograde pyelo w/stent LT DATE: 12/26/2024 14:01 INDICATION: Renal stone TECHNIQUE: Fluoroscopic images from a left internal ureteral stent placement are submitted for review . 23 seconds of fluoroscopy time. FINDINGS: There is a left double-J internal ureteral stent projecting in expected position, with proximal [place] loop at the level of the renal pelvis and distal loop in the pelvis within the bladder lumen. IMPRESSION: 1. Left internal ureteral stent placement. Please refer to real-time procedural findings for detail s. Reviewed, dictated and finalized at location A. IMPRESSION: 1. Left internal ureteral stent placement. Please refer to real-time procedur al findings for details.
--- NOTE | 2024-12-26 11:29 | PM.IMHP ---
H&P: HPI History of Present Illness Date/Time: 12/26/24 11:29 Chief Complaint: left ureteral calculus Narrative: 39 year old female with history of left renal eswl presented with left flank pain. KUB reveals possible 1.2 cm prox left ureteral calculus and question of 7 mm distal left stone. Also with residual stone in kidney. Review of Systems Review of Systems: All systems reviewed & are unremarkable except as noted in HPI and below PMFSH Past Medical History Medical History Mixed hyperlipidemia Obstructive sleep apnea Neck Circumference (inches): 17.5 [place]: 8 home sleep study 1.18.24:needs to have a titration in the sleep lab . extremely severe obstructive sleep apnea, the apnea-hypopnea index is 105.9, the central apnea-hypopnea index is 5.5, with desaturation to 75%, 35.6 minutes spent below 88% and loud persistent snoring. not a candidate for auto PAP due to the severity of her condition, the presence of central apneas greater than 5 events per hour and the degree of nocturnal hypoxemia. (normal spontaneous vaginal delivery) x2 Hypertension History of kidney stones Surgical History Surgical History H/O: hysterectomy History of hysteroscopy History of bilateral tubal ligation Essure 2012 History of endometrial ablation History of removal of cyst wrist History of tonsillectomy History of breast biopsy X2-- 2019 and 2022 both benign History of cholecystectomy Family History Family History Mother Family history of malignant neoplasm of breast in first degree relative Breast cancer Grandparent Family history of coronary artery disease Father Lung cancer Testicular cancer Other Breast cancer BRCA negative Other Diabetes mellitus Social History Social History Smoking status: Never smoker Second hand tobacco smoke exposure: No Alcohol intake: never Alcohol use details: very rarely maybe one time per year Substance use: never Substance use type: does not use Do You Feel Safe in your Home?: Yes Lack of Transportation: No Lack of Food: Never True Current Housing: I Have Housing Concerned About Future Housing: No Difficulty Paying Gas/Electric Bills: No Difficulty Paying for Meds: No Currently Unemployed: No Education: High School Diploma/GED Difficulty w/ Childcare or Family Care: No Living arrangements: with family Occupation/Education: unemployed Spiritual care concerns: No Meds Home Medications and Allergies Home Medications ?Medication ?Instructions ?Recorded ?Confirmed ?Type omega 8-gxa-zvm-fish oil 1,200 mg 2 cap PO DAILY 02/14/24 12/25/24 History (144 mg-216 mg) capsule (Fish Oil) metoprolol succinate 50 mg 50 mg PO DAILY #90 tabs 02/21/24 12/25/24 Rx tablet,extended release 24 hr metformin 500 mg tablet,extended 1,000 mg (2 x 500 mg) PO BID #360 07/30/24 12/25/24 Rx release 24 hr tabs tamsulosin 0.4 mg capsule 0.4 mg PO DAILY 07/30/24 12/25/24 History hydrochlorothiazide 25 mg tablet 25 mg PO QAM #90 tabs 09/16/24 12/25/24 Rx valsartan 40 mg tablet 40 mg PO BID #180 tabs 09/16/24 12/25/24 Rx albuterol sulfate 90 mcg/actuation See Rx Instructions .Route 11/28/24 12/25/24 Rx aerosol inhaler .COMPLEX #8.5 ea hydrocodone 5 mg-acetaminophen 325 1 tablet PO Q4-6H PRN pain 12/25/24 12/25/24 History mg tablet Allergies Allergy/AdvReac Type Severity Reaction Status Date / Time lisinopril Allergy Severe Cough Verified 12/25/24 15:14 Sulfa (Sulfonamide Allergy Unknown unknown Verified 12/25/24 15:14 Antibiotics) sulfanilamide Allergy Unknown unknown Verified 12/25/24 15:14 amlodipine AdvReac Severe ankle Verified 12/25/24 15:14 swelling Exam Const: General: cooperative Resp: Effort & Inspection: normal respiratory effort Cardio: Rate: regular rate Rhythm: regular rhythm Assessment and Plan Assessment and plan (1) Left ureteral calculus: Code(s): N20.1 - Calculus of ureter Status: Acute Assessment and Plan: Plan for cystoscopy, left retrograde, left ureteroscopy with possible laser, stent placement
--- NOTE | 2024-12-26 11:32 | WPDHPUPDATE1 ---
History and Physical Update Update Date/Time: 12/26/24 11:32 History and Physical has been reviewed, including an updated exam of the patient. There are NO changes in the patient's condition. Risks, benefits, and alternatives have been discussed and questions answered. Patient agrees to proceed with procedure.
[2024-12-26 12:14] LABS: Glucose Point of Care 85 mg/dl (65-105)
[2024-12-26] MEDS: LACTATED RINGERS 1,000 ML 30 ML IV CONT (12:23)
[2024-12-26 12:25] LABS: Anion Gap 11 mmol/L (4-12); Blood Urea Nitrogen 13 mg/dL (7-17); Calcium 9.1 mg/dL (8.4-10.2); Carbon Dioxide 23 mmol/L (22-30); Chloride 98 mmol/L (98-107); Estimated CRCL calculation 80 ml/min; Estimated Glomerular Filt Rate 51; Glucose 108 mg/dL (65-110); Potassium 3.6 mmol/L (3.4-5.0); Sodium 132 mmol/L (137-145)
--- NOTE | 2024-12-26 12:27 | P.PNAN_ITS ---
Anes - Initial Pre Proc Eval Procedure: Operation Date: 12/26/24 13:00 Proposed Procedures p Cystoscopy, Left Ureteroscopy, Possible Left Retrograde Pyelogram, Possible Left Stone Extraction, Possible Left Stent Placement, Possible Holmium Laser Procedure - Reed Roa MD Date/Time: 12/26/24 12:27 Surgeon: Reed Roa MD Pre Op Diagnosis: left ureteral stone Patient Data Age: 39 Gender: F Height: 1.73 m Weight: 128.6 kg Last Vital Signs Temp 37.3 C 12/26/24 11:15 Pulse 95 12/26/24 11:15 Resp 14 12/26/24 11:15 BP 144/78 H 12/26/24 11:15 Pulse Ox 98 12/26/24 11:15 Allergies Allergy/AdvReac Type Severity Reaction Status Date / Time lisinopril Allergy Severe Cough Verified 12/26/24 12:16 Sulfa (Sulfonamide Allergy Unknown unknown Verified 12/26/24 12:16 Antibiotics) sulfanilamide Allergy Unknown unknown Verified 12/26/24 12:16 amlodipine AdvReac Severe ankle Verified 12/26/24 12:16 swelling Home Medications ?Medication ?Instructions ?Recorded ?Confirmed ?Type omega 4-lpe-jde-fish oil 1,200 mg 2 cap PO DAILY 02/14/24 12/25/24 History (144 mg-216 mg) capsule (Fish Oil) metoprolol succinate 50 mg 50 mg PO DAILY #90 tabs 02/21/24 12/26/24 Rx tablet,extended release 24 hr metformin 500 mg tablet,extended 1,000 mg (2 x 500 mg) PO BID #360 07/30/24 12/25/24 Rx release 24 hr tabs tamsulosin 0.4 mg capsule 0.4 mg PO DAILY 07/30/24 12/26/24 History hydrochlorothiazide 25 mg tablet 25 mg PO QAM #90 tabs 09/16/24 12/25/24 Rx valsartan 40 mg tablet 40 mg PO BID #180 tabs 09/16/24 12/25/24 Rx albuterol sulfate 90 mcg/actuation See Rx Instructions .Route 11/28/24 12/25/24 Rx aerosol inhaler .COMPLEX #8.5 ea hydrocodone 5 mg-acetaminophen 325 1 tablet PO Q4-6H PRN pain 12/25/24 12/26/24 History mg tablet Laboratory Tests 12/26/24 12/26/24 11:54 12:08 Sodium 132 L mmol/L (137-145) Potassium 3.6 mmol/L (3.4-5.0) Chloride 98 mmol/L (98-107) Carbon Dioxide 23 mmol/L (22-30) Anion Gap 11 mmol/L (4-12) BUN 13 mg/dL (7-17) Creatinine 1.17 H mg/dL (0.7-1.0) Estim Creat Clear Calc 80 ml/min Estimated GFR 51 L (59 - ) Glucose 108 mg/dL (65-110) POC Capillary Glucose 85 mg/dl (65-105) Calcium 9.1 mg/dL (8.4-10.2) Patient hx anesthesia problems: none Family hx anesthesia problems: none Results Review: All pre-operative results and documents have been reviewed as part of the pre- operative evaluation. [facility] Past Medical History Medical History Mixed hyperlipidemia Obstructive sleep apnea Neck Circumference (inches): 17.5 [place]: 8 home sleep study 1.18.24:needs to have a titration in the sleep lab . extremely severe obstructive sleep apnea, the apnea-hypopnea index is 105.9, the central apnea-hypopnea index is 5.5, with desaturation to 75%, 35.6 minutes spent below 88% and loud persistent snoring. not a candidate for auto PAP due to the severity of her condition, the presence of central apneas greater than 5 events per hour and the degree of nocturnal hypoxemia. (normal spontaneous vaginal delivery) x2 Hypertension History of kidney stones Surgical History Surgical History H/O: hysterectomy History of hysteroscopy History of bilateral tubal ligation Essure 2013 History of endometrial ablation History of removal of cyst wrist History of tonsillectomy History of breast biopsy X2-- 2019 and 2022 both benign History of cholecystectomy Family History Family History Mother Family history of malignant neoplasm of breast in first degree relative Breast cancer Grandparent Family history of coronary artery disease Father Lung cancer Testicular cancer Other Breast cancer BRCA negative Other Diabetes mellitus Social History Social History Smoking status: Never smoker Second hand tobacco smoke exposure: No Alcohol intake: never Alcohol use details: very rarely maybe one time per year Substance use: never Substance use type: does not use Do You Feel Safe in your Home?: Yes Lack of Transportation: No Lack of Food: Never True Current Housing: I Have Housing Concerned About Future Housing: No Difficulty Paying Gas/Electric Bills: No Difficulty Paying for Meds: No Currently Unemployed: No Education: High School Diploma/GED Difficulty w/ Childcare or Family Care: No Living arrangements: with family Occupation/Education: unemployed Spiritual care concerns: No Anes - Eval Final PreProcedure Day of Procedure 12/26/24 12:27 Patient weight: morbidly obese Heart: regular rate and rhythm Lungs: clear to auscultation Airway: Mallampati scale class III Neurological: alert and oriented Last oral intake: >/= 8 hours ASA classification: III Emergent: no Anesthetic plan: proceed Anesthesia type and monitoring: general LMA and standard monitoring Results Review: All pre-operative results and documents have been reviewed as part of the pre- operative evaluation. Informed Consent: The patient's anesthetic plan and its attendant risks and benefits were discussed with the patient/family/POA. Questions were solicited and answers provided to the satisfaction of the patient/family/POA.
[2024-12-26] MEDS: ceFAZolin 3 GM/D5W 100 ML 100 ML IVPB (13:10)
--- NOTE | 2024-12-26 14:00 | W.PM.PROC2 ---
Procedure Note - Detailed Date of Procedure 12/26/24 Pre-op Diagnosis left ureteral stones and renal calculus Post-op Diagnosis Same Procedure Performed Cystoscopy, left retrograde, left ureteroscopy with holmium laser, stone extraction, left ureteral stent placement 4.8 Tristanian contour Surgeon Reed Roa MD Anesthesia General Description of Procedure Patient was taken to the operative suite correctly identified. Once anesthesia was obtained was placed she was placed in the dorsal lithotomy position and prepped and draped usual sterile fashion. Twenty-two Tristanian scope was inserted into the urethra. Sensor wire was inserted the left ureteral orifice. Rigid ureteral scope was then placed. She had a 7 8 mm stone in the distal ureter. Using holmium laser fiber we fragmented the stone and basketed out to the bladder. More proximally the 1.2 cm stone was visualized. This also was lasered with the fragments retrieved. We then placed a 2nd guidewire and placed a flexible ureteral scope up to the kidney. She had residual stones in the lower pole with some fragments. We dusted this area. There was no significant stone burden at termination of procedure. We then did a pyelogram. 4.8 Tristanian contour stent was then placed with the proximal end coiled in the renal pelvis and the distal in the bladder. 2% viscous lidocaine was inserted in the urethra the stone fragments were retrieved and sent for analysis. Patient was taken recovery stable condition. She will follow-up in a week's time for stent removal. This completes dictation. Please send a copy of op note to my office. Estimated Blood Loss 0 Drains Yes Packing No Pathology Yes Complications No immediate complications Condition Stable Disposition PACU
[2024-12-26] MEDS: LIDOCAINE 2% GEL UROJET 10 ML PKG MUCOUS MEM (14:05)
[2024-12-26 14:51] LABS: Glucose Point of Care 126 mg/dl (65-105)
== END 2024-12-26 15:17 | disposition home or self-care (01) ==
PROVIDERS: Anesthesiology; PCP Family Medicine; Visit Provider Urology
PROC: (CPT 52352; principal; 2024-12-26 13:00)
DX: N20.2 Calculus of kidney with calculus of ureter (principal); I10 Essential (primary) hypertension; E78.2 Mixed hyperlipidemia; G47.33 Obstructive sleep apnea (adult) (pediatric); Z79.84 Long term (current) use of oral hypoglycemic drugs; E66.01 Morbid (severe) obesity due to excess calories; Z68.41 Body mass index [BMI] 40.0-44.9, adult
CPT/HCPCS: 52356; 36415; 74420; 80048; 82365; 82948; 88300; C1769; C2617; J0690; J1100; J2405; J2704; J3010; J7120; Q9966

== ENCOUNTER 2025-01-06 14:57 | Outpatient (CLI) | payer OTHER, SELFPAY ==
--- NOTE | ~2025-01-06 | XR_ITS ---
XR abdomen/kub 1V Ordering provider: Cyrus Acosta History: . LT stent removed today, kidney stone F/U . Comparison: None. FINDINGS: BOWEL: Nonobstructive bowel gas pattern. ORGANOMEGALY: None. SIGNIFICANT PATHOLOGIC CALCIFICATIONS: Bilateral kidney stones with the largest on the right side lucius sures 1.5 cm. OTHER: No free air is seen under the diaphragm. IMPRESSION: NO ACUTE ABDOMINAL FINDINGS. Bilateral kidney stones. Reviewed, dictated and finalized at location A.
== END 2025-01-06 14:58 | disposition home or self-care (01) ==
LOC: CHSIMG 14:59
PROVIDERS: PCP Family Medicine; Visit Provider Urology
DX: N20.0 Calculus of kidney (principal)
CPT/HCPCS: 74018

== ENCOUNTER 2025-03-20 11:05 | Outpatient (CLI) | payer OTHER, SELFPAY ==
--- NOTE | ~2025-03-20 | XR_ITS ---
XR abdomen/kub 1V 03/20/2025 11:23 Indication: Right renal stone Procedure: KUB Comparison: 01/06/2025 Findings: There are bilateral renal stones, largest in the upper pole of the left kidney. There are c holecystectomy clips. Bowel gas pattern nonobstructive. No acute osseous abnormality. Impression: 1: No significant change to bilateral nephrolithiasis. Reviewed, dictated and finalized at location B. Impression: 1: No significant change to bilateral nephrolithiasis.
--- OUTSIDE RECORDS SUMMARY | 2025-03-20 11:11 | XMS_ITS | Referral Summary ---
Author Organization [facility] Address [address] [place] [address] Care Team Providers Care Clinical Practitioner Name Role Phone Nicole Aceves MD Primary Care Provider + Encounters Date Type Department Care Team Description 02/06/2025 10:00 AM CDT Office Visit [facility] [address] [facility] [address] [place] [phone] Sophia Amador MD PhD Conjunctival cyst of left eye (Primary Dx) 01/13/2025 Telephone [facility] [address] [place] [address] Sophia Amador MD PhD Scheduling Appointments from Last 3 Months Medications diphenhydrAMINE (Benadryl Allergy) 2.5 mg/mL liquid Take by mouth Act zenon omega 7-ywn-qqw-fish oil (Fish OiL) 1,000 (120-180) mg capsule Take by mouth daily Active metFORMIN XR (GLUCOPHAGE XR) 500 mg 24 hr tablet Take 2 tablets (1,000 mg total) by mouth 2 (two) times a day Active metoprolol XL (TOPROL-XL) 50 mg extended release tablet Take 1 tablet (50 mg total) by mouth daily Active multivitamin with folic acid (One Daily Multivitamin) 400 mcg tablet Take by mouth daily Active nitrofurantoin monohydrate (MACROBID) 100 mg capsule 100 MG ORALLY EVERY 12 HOURS FOR 3 DAYS MUST ADMINISTER WITH A MEAL/FOOD Active oxyBUTYnin (DITROPAN) 5 mg tablet TAKE 1 TABLET ORALLY TWICE A DAY NEEDED FOR BLADDER SPASMS 5 Active tamsulosin (FLOMAX) 0.4 mg extended release capsule Take 1 capsule (0.4 mg total) by mouth daily 5 Active albuterol HFA (PROVENTIL HFA,VENTOLIN HFA,PROAIR HFA) 90 mcg/actuation inhaler 2 PUFFS INHALED EVERY 4 HOURS FOR WHEEZING/ SHORTNESS OF BREATH 5 Active hydroCHLOROthiaz jerry (HYDRODIURIL) 25 mg tablet Take 1 tablet (25 mg total) by mouth every morning 5 Active HYDROcodone-acet aminophen (NORCO) 5-325 mg per tablet Take by mouth every 6 (six) hours as needed for pain 5 Active tobramycin-dexAM ETHasone (TOBRADEX) ophthalmic solution INSTILL 1 DROP INTO LEFT EYE 4 TIMES A DAY DIRECTED 5 Active valsartan (DIOVAN) 40 mg tablet Take by mouth daily Active Active Problems No known active problems Social History Tobacco Use Types Packs/Day Years Used Date Smoking Tobacco: Never Smokeless Tobacco: Never Tobacco Cessation:Counseling Given: Not Answered AUDIT-C Answer Date Recorded Q1: How often do you have a drink containing alc ohol? Monthly or less 02/06/2025 Average Number of Drinks Not on file 025 Q3: How often do you have si x or more drinks on one occasion? Never 02/06/2025 Comments Unknown Sex and Gender Information Value Date Recorded Sex Assigned at Not on file Legal Sex Female 8:40 AM CDT Gender Identity Not on file Sexual Orientation Not on file Plan of Treatment Not on file Insurance [facility] [place] [address] Care Teams Clinical Practitioner Relationship Specialty Start Date End Date Nicole Aceves MD [address] [place] [address] [address] PCP - General Family Medicine 01/13/25
--- OUTSIDE RECORDS SUMMARY | 2025-03-20 11:11 | XMS_ITS | Clinical Summary ---
Author Organization [facility] Address [address] [place] [phone] Care Team Providers Care Interventionist Name Role Phone Nicole Aceves MD Primary Care Provider + Medications diphenhydrAMINE (Benadryl Allergy) 2.5 mg/mL liquid Take by mouth Act zenon omega 2-xma-bko-fish oil (Fish OiL) 1,000 (120-180) mg capsule [...] 3 DAYS MUST ADMINISTER WITH A MEAL/FOOD 5 Active oxyBUTYnin (DITROPAN) 5 mg tablet TAKE [...] Active Active Problems No known active problems Encounters Date Type Department Care Team Description 02/06/2025 10:00 AM CDT Office Visit [facility] [address] [facility] [address] [place] [phone] Sophia Amador MD PhD Conjunctival cyst of left eye (Primary Dx) 01/13/2025 Telephone [facility] [address] [place] [address] Sophia Amador MD PhD Scheduling Appointments from Last 3 Months Social History Tobacco Use Types Packs/Day Years [...] on file Sexual Orientation Not on file Obstetrics History Plan of Treatment Health Maintenance Due Date Last Done Comments Breast Cancer Screening-Mammogram 1983 Cervical Cancer Screening 1983 Depression Screening 1983 Hepatitis C Screening 1983 Varicella Vaccines (1 of - 13+ 2-dose series) 01/23/1996 Hepatitis B Screening 2001 Regular Well Visit/Exam 18-64 2001 HPV Vaccines (1 - 3-dose SCD M series) 2010 Covid-19 Vaccine (2023-2 5 season) 2024 08/13/2021, 12/03/2020, 11/03/2020 Influenza Vaccine (#1) 2025 4, 07/10/2021 DTaP/Tdap/Td Vaccine (2 - Td or Tdap) 05/12/2031 05/12/2021 Pneumococcal vaccine <65 Aged Out No longer eligible based on patient's age to complete this topic Insurance [facility] Care Teams Interventionist Relationship Specialty Start Date End Date Nicole Aceves MD [facility] [place] [address] PCP - General Family Medicine 01/13/25
== END 2025-03-20 11:06 | disposition home or self-care (01) ==
LOC: CHSIMG 11:08
PROVIDERS: PCP Family Medicine
DX: N20.0 Calculus of kidney (principal)
CPT/HCPCS: 74018

== ENCOUNTER 2025-07-21 15:03 | Outpatient (CLI) | payer OTHER, SELFPAY ==
--- NOTE | ~2025-07-21 | XR_ITS ---
EXAMINATION: KUB: DATE: 07/21/2025 INDICATION: Flank pain. History of kidney stones.. TECHNIQUE: Supine AP view of the abdomen were obtained. COMPARISON: Previous study dated 03/20/2025. FINDINGS: Right renal calculi are noted measuring up to 14 mm in size in the upper pole. Multiple smaller left renal calculi are noted in the upper mid and lower calyces. No calcific densities in the projection of the bladder. Postoperative changes of cholecystectomy. IMPRESSION: 1. Bilateral renal calculi similar to prior radiographic study. 2. Postoperative cholecystectomy. Reviewed, dictated and finalized at location T. FITTER
--- OUTSIDE RECORDS SUMMARY | 2025-07-21 17:03 | XMS_ITS | Clinical Summary ---
Author Organization [facility] Address [address] [place] [phone] Care Team Providers Care Sales Route Driver Name Role Phone Nicole Aceves MD Primary Care Provider + Medications diphenhydrAMINE (Benadryl Allergy) 2.5 mg/mL liquid Take by mouth Act zenon omega 1-mbl-jsx-fish oil (Fish OiL) 1,000 (120-180) mg capsule [...] Orientation Not on file Plan of Treatment Health Maintenance Due Date Last Done Comments Breast Cancer Screening-Mammogram 1983 Cervical Cancer Screening 1983 Depression Screening 1983 Hepatitis C Screening 1983 Varicella Vaccines (1 of 2 - 13+ 2-dose series) 01/23/1996 Hepatitis B Screening 2001 Regular Well Visit/Exam 18-64 2001 HPV Vaccines (1 - 3-dose SCD M series) 2010 Covid-19 Vaccine ( - 2024-2 6 season) 2025 08/13/2021, 12/03/2020, 11/03/2020 Influenza Vaccine (#1) 2025 4, 07/10/2021 DTaP/Tdap/Td Vaccine (2 - Td or Tdap) 05/12/2031 05/12/2021 Pneumococcal vaccine <65 Aged Out No longer eligible based on patient's age to complete this topic Insurance [facility] Care Teams Sales Route Driver Relationship Specialty Start Date End Date Nicole Aceves MD [facility] [facility] [address] [place] [address] [place] [id number] PCP - General Family Medicine 01/13/25
== END 2025-07-21 15:04 | disposition home or self-care (01) ==
LOC: CHSIMG 15:23
PROVIDERS: PCP Family Medicine; Visit Provider Urology
DX: R10.A2 Flank pain, left side (principal); N20.0 Calculus of kidney; Z90.49 Acquired absence of other specified parts of digestive tract
CPT/HCPCS: 74018